=== PATIENT | male | born 1965 | race Caucasian/White ===

== ENCOUNTER → 2023-03-29 | Outpatient (CLI) | payer SELFPAY ==
--- NOTE | 2023-03-29 13:25 | CT ---
EXAMINATION TYPE: CT lumbar spine wo con DATE OF EXAM: 03/29/2023 10:17 AM COMPARISON: None. HISTORY: lower back pain CT DLP: 928 mGycm Automated exposure control for dose reduction was used. Unenhanced CT of the lumbar spine was performed. Bone and soft tissue window settings are submitted as well as coronal and sagittal reconstructions. There are 5 lumbar type vertebra with a transitional L6 type vertebral. Bilateral pars defect L5 leve l with a grade 1 borderline grade 2 anterolisthesis of L5 on L6 measured 9 mm from posterior vertebra l body margin sagittal image 35. There is moderate to severe disc space narrowing with vacuum disc ph enomenon and endplate sclerosis at the labeled L5-L6 level. Vertebral body heights are preserved. Dis c space height above this are preserved. Axial images at T12-L1 and L1-L2 level appear within normal limits. Axial images at L2-L3 level show mild broad disc bulge mildly effaces the anterior thecal sac. Bilate ral neural foramina are patent. Axial images at L3-L4 level show [id number] broad disc bulge mildly effacing anterior thecal sa c. Bilateral neural foramina are patent. Axial images at the L4-L5 level show mild broad disc bulge and mild to moderate facet arthropathy and ligamentum flavum hypertrophy. Bilateral neural foramina are patent. Axial images at L5-L6 level shows spondylolisthesis with pseudodisc herniation. Spinal canal is prese rved. There is moderate facet arthropathy bilaterally. There is moderate bilateral neural foraminal n arrowing. Axial images at L6-S1 level shows moderate facet arthropathy. Spinal canal is preserved. Bilateral ne ural foramina are patent. Paraspinal muscle bulk is preserved. IMPRESSION: Spondylolisthesis and degenerative change L5-L6 level. Additional multilevel degenerative changes as detailed above.
--- NOTE | 2023-03-29 15:09 | CT ---
EXAMINATION TYPE: CT shoulder LT wo con DATE OF EXAM: 03/29/2023 COMPARISON: None. HISTORY: pain and stiffness CT DLP: 506 mGycm Automated exposure control for dose reduction was used. FINDINGS: No acute displaced fracture left shoulder. Mild to moderate narrowing and capsular hypertrophy at the acromioclavicular joint. No significant sp urring. Distal acromion morphology is unremarkable. Glenohumeral joint shows no significant spurring or effusion. Rotator cuff muscle bulk is maintained. Glenoid version is thought within normal limits. Visualized left lung shows old healed fracture of the posterior left sixth rib axial image 61. Visual ized left lung is clear. IMPRESSION: As above.
--- NOTE | 2023-03-29 15:28 | CT ---
EXAMINATION TYPE: CT shoulder RT wo con CT DLP: 487 mGycm, Automated exposure control for dose reduction was used. DATE OF EXAM: 03/29/2023 10:32 AM COMPARISON: CT right left shoulder same day. CLINICAL INDICATION:Male, 57 years old with history of M25.51 M54.5; PHH, pain and stiffness TECHNIQUE: Axial images were obtained of the right . Additional coronal and sagittal reformatted talat ges and soft tissue and bone window were obtained for review. 3-D reconstruction was created on a [employer] workstation. Contrast used: None Oral contrast used: None FINDINGS: No acute displaced fracture left shoulder. Mild to moderate narrowing and capsular hypertrophy at the acromioclavicular joint. Mild osseous spurring of the glenoid and humeral head. Distal acromion morp hology is unremarkable. No os acromiale he visualized. Glenohumeral joint shows no significant spurring or effusion. Rotator cuff muscle bulk is maintained. Glenoid version is thought within normal limits. Visualized right lung is relatively unremarkable. Remote right-sided rib fractures are felt to be pre sent. Right posterior back subcutaneous probable sebaceous cyst measuring 28 x 17 mm. No lymphadenopathy visualized. No solid masses. IMPRESSION: 1. Mild to moderate right shoulder osteoarthrosis. Consider further evaluation of the right shoulder with MRI for adhesive capsulitis given patient provided history of pain and stiffness. 2. No evidence of fracture. 3. Probable Sebaceous cyst posterior right shoulder.
== END | disposition home or self-care (01) ==
LOC: RADCTMAIN 08:23
PROVIDERS: ATTEND Family Medicine
DX: M43.16 Spondylolisthesis, lumbar region (principal); M47.816 Spondylosis without myelopathy or radiculopathy, lumbar region; M99.73 Connective tissue and disc stenosis of intervertebral foramina of lumbar region; M51.36 Other intervertebral disc degeneration, lumbar region; M19.011 Primary osteoarthritis, right shoulder; M25.512 Pain in left shoulder
CPT/HCPCS: 72131

== ENCOUNTER → 2023-11-20 | Outpatient (CLI) | payer BC ==
--- NOTE | 2023-11-20 12:23 | XR ---
EXAMINATION TYPE: XR orbit detect foreign body DATE OF EXAM: 11/20/2023 COMPARISON: NONE HISTORY: 57-year-old male Z91.89, MRI clearance TECHNIQUE: 3 views FINDINGS: No retained metal debris identified within either orbit. Scattered dental amalgam. Visualiz ed paranasal sinuses appear clear radiographically. IMPRESSION: No retained metal debris identified within either orbit. Scattered dental amalgam. Clear for MRI.
== END | disposition home or self-care (01) ==
LOC: RADXRMAIN 11:12
PROVIDERS: ATTEND Orthopaedic Surgery
DX: K08.89 Other specified disorders of teeth and supporting structures (principal); Z91.89 Other specified personal risk factors, not elsewhere classified
CPT/HCPCS: 70030

== ENCOUNTER → 2023-11-29 | Outpatient (CLI) | payer BC ==
--- NOTE | 2023-12-01 08:34 | MR ---
EXAMINATION TYPE: MR lumbar spine wo con DATE OF EXAM: 11/29/2023 COMPARISON: Lumbar spine x-ray 07/06/2023 HISTORY: Lower back pain, BLE radiculopathy. CONTRAST: 0 mL intravenous Gadavist. TECHNIQUE: Multiplanar, multisequence images of the lumbar spine were acquired. For purposes of this exam the west disc level scanned is the L5-S1 level with spondylolisthesis. Plain film correlation would be re commended prior to surgical intervention. FINDINGS: L5-S1: There is a grade 1-2 spondylolisthesis of L5 anteriorly on S1. There is loss of disc height to this level. Residual disc uncovering is noted. No AP spinal canal stenosis. Moderate right and sever e left foraminal stenosis is present. Correlate with radicular symptoms. Facet degenerative changes a re noted. L4-L5: No significant disc bulge or disc herniation. No spinal canal stenosis. No foraminal stenosi s. . L3-L4: Mild central bulge is mild anterior thecal sac compression. No AP spinal canal stenosis is pre sent. Neural foramen are patent. No spinal canal stenosis. No foraminal stenosis. . L2-L3: No significant disc bulge or disc herniation. No spinal canal stenosis. No foraminal stenosi s. L1-L2: No significant disc bulge or disc herniation. No spinal canal stenosis. No foraminal stenosi s. T12-L1: No significant disc bulge or disc herniation. No spinal canal stenosis. No foraminal stenos is. IMPRESSION: 1. Grade 1-2 spondylolisthesis of L5 anteriorly on S1. 2. Severe bilateral foraminal stenosis at L5-S1
== END | disposition home or self-care (01) ==
LOC: RADMRIMAIN 07:59
PROVIDERS: ATTEND Orthopaedic Surgery
DX: M99.74 Connective tissue and disc stenosis of intervertebral foramina of sacral region (principal); M43.16 Spondylolisthesis, lumbar region; M54.16 Radiculopathy, lumbar region
CPT/HCPCS: 72148

== ENCOUNTER → 2024-03-11 | Outpatient (CLI) | payer BC ==
[2024-03-11 17:26] LABS: Basophils # (A) 0.04 X 10*3/uL (0.00-0.10); Basophils % (A) 0.7 %; Eosinophils # (A) 0.13 X 10*3/uL (0.04-0.35); Eosinophils % (A) 2.1 %; HCT 43.4 % (39.6-50.0); HGB 14.2 g/dL (13.0-17.0); Lymphocytes # (A) 1.87 X 10*3/uL (0.90-5.00); Lymphocytes % (A) 30.6 %; MCHC 32.7 g/dL (32.0-37.0); MCV 91.8 FL (80.0-97.0); Mean Platelet Volume 10.1 FL (9.5-12.2); Monocytes # (A) 0.48 X 10*3/uL (0.20-1.00); Monocytes % (A) 7.9 %; NRBC Per 100 WBC 0 X 10*3/uL (0.00-0.01); Neutrophils # (A) 3.53 X 10*3/uL (1.80-7.70); Neutrophils % (A) 57.7 %; Platelet Count 279 X 10*3/uL (140-440); RBC 4.73 X 10*6/uL (4.40-5.60); RDW 13.4 % (11.5-14.5); WBC 6.11 X 10*3/uL (4.50-10.00)
[2024-03-11 17:32] LABS: ALT 34 U/L (10-49); AST 22 U/L (14-35); Albumin 4.8 g/dL (3.8-4.9); Albumin/Globulin Ratio 1.85 Ratio (1.60-3.17); Alkaline Phosphatase 77 U/L (41-126); BUN/Creat Ratio 15.44 Ratio (12.00-20.00); Blood Urea Nitrogen 13.9 mg/dL (9.0-27.0); Calcium 9.8 mg/dL (8.7-10.3); Carbon Dioxide 22.3 mmol/L (21.6-31.8); Chloride 107 mmol/L (96-109); Globulin 2.6 g/dL (1.6-3.3); Glucose 107 mg/dL (70-110); Potassium 4.2 mmol/L (3.5-5.5); Prostate Specific Antigen 1.09 ng/mL (0.000-3.500); Sodium 143 mmol/L (135-145); Total Bilirubin 0.5 mg/dL (0.3-1.2); Total Protein 7.4 g/dL (6.2-8.2)
[2024-03-11 19:32] LABS: Appearance,Urine Clear (Clear); Bilirubin,Urine Negative (Negative); Blood,Urine Negative (Negative); Color,Urine Yellow (Yellow); Ketones,Urine Trace (Negative); Nitrite,Urine Negative (Negative); Specific Gravity,Urine 1.023 (1.001-1.030); Urobilinogen,Urine 0.2 E.U./DL
== END | disposition home or self-care (01) ==
LOC: LABWHC1 08:44
PROVIDERS: ATTEND Family Medicine
DX: Z01.812 Encounter for preprocedural laboratory examination (principal); I10 Essential (primary) hypertension; Z79.899 Other long term (current) drug therapy
CPT/HCPCS: 36415; 80053; 81003; 83036; 84153; 84403; 84443; 85025

== ENCOUNTER → 2024-03-13 | Outpatient (CLI) | payer BC | END | disposition home or self-care (01) | LOC: LABPAT 08:40 | PROVIDERS: ATTEND Orthopaedic Surgery | DX: Z01.812 Encounter for preprocedural laboratory examination (principal); M43.16 Spondylolisthesis, lumbar region; M54.16 Radiculopathy, lumbar region; Z22.322 Carrier or suspected carrier of Methicillin resistant Staphylococcus aureus | CPT/HCPCS: 36415; 86850; 86900; 86901; 87070 ==

== ENCOUNTER 2024-03-19 10:03 | Inpatient (IN) | payer BC ==
[2024-03-18 09:30] VITALS: BMI 30.6
[~2024-03-19 10:03] MED LIST: LIDOCAINE 1% (10MG/ML) FOR IV START INTRADERMA PRN; TRANEXAMIC 1,000 MG/100ML-NACL 1,000 MG in SALINE 1 100ML.BAG IVPB PRN; VANCOMYCIN 1,500 MG in SODIUM CHLORIDE 0.9% 500 ML 500 ML IVPB PRN
--- NOTE | 2024-03-19 10:09 | P.HPOR ---
History of Present Illness H&P Date: 03/13/24 Chief Complaint: GRADE II L4-5 SPONDYLOLISTHESIS; NEUROGENIC CLAUDICATION .D:Date: 03/13/24 : 08:01am .T:Title: *[facility] HISTORY AND PHYSICAL Age: 58 year Height: 6'2" Weight: 234 lbs BMI: 30.04 kg/m2 Occupation: [employer] VAS: 3 IMPRESSION: It was my pleasure to have seen and examined David. I reviewed the patient's clinical syndrome, physical findings, and imaging studies during the appointment today. It is my impression that the patient has a diagnosis of. 1. Grade II spondylolisthesis of L5 on S1 2. Bilateral lower extremity radiculopathy 3. Low back pain Spine Surgery Risk Review Mr. Causey is presenting for evaluation of low back and bilateral lower extremity pain, bilateral lower extremity numbness and tingling. It was my pleasure to have seen and examined Mr. Causey. In our visit today we have had a chance to go over subjective complaints, physical examination findings and treatments including the natural course history without intervention and various interventional options. The patients imaging demonstrates: MRI of the Lumbar Spine performed on 11/29/2023 at [facility] are reviewed today in office and demonstrate: Images Reviewed in office with the patient. Of note, sticking with nomenclature set by radiology. There is segmentation difference in his low spine with mobile disc between what would be S1-2 based on radiology count. L1-2 Mild spondylosis, no stenosis L2-3 Mils spondylosis, no stenosis L3-4 Mild spondylosis, no stenosis L4-5 Mils spondylosos, no stenosis L5-S1 Grade II spondylolisthesis, unstable with severe central and b/l foraminal stenosis, Facet hypertrophy, ligamental hypertrophy, disc osteophyte complex all contributing to deformity and stenotic features. Disc collapse near complete. NO fractures noted. 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 Alignment: Segmental kyphosis due to slip. Overall flattened LL due to this. Coronal alignment: Maintained Fracture: None Lesion: None XRay Lumbar Multiview (AP, Lateral, Flexion, Extension) with AP pelvis; 5 views taken at [facility] on 07/06/23: -Re-reviewed with te patient in office today. Moderate spondylitic and severe degenerative changes L4-S1 with preserved alignment. There is a transitional vertebral body creating an L6 in count. Diminished disc height at L5-S1. Grade 2 anterolisthesis L5 onto L6 (L5-S1 according to radioloty) segmentation difference. Vertebral body heights are preserved. No acute osseous abnormalities. CT scancompleted at [facility] from03/29/23 of LumbarSpine: -Re-reviewed with te patient in office today. IMPRESSION: Spondylolisthesis and degenerative change L5-L6 (L5-S1 according to radiology) level. Additional multilevel degenerative changes as detailed above. On physical exam, Mr. Causey demonstrates: A continued throbbing, ache-like pain throughout the low back that radiates down into the bilateral lower extremities. He states his lower extremity pain is associated with numbness and tingling bilaterally. He notes intermittent sharp, "shock-like" pains throughout the lumbar spine after any quick movements or bending motions. He states his symptoms worsen after prolonged activity. He states his lower extremity pain starts around the bilateral hip and radiates down into the thighs, calves, and bilateral foot. The patient reports experiencing severe sleep disturbances related to his ongoing pain and associated symptoms. I have explained to the patient that as their condition progresses it will cause further neurological deficits and eventual paralysis. Based on the patients imaging, physical exam, and the rapid progression and disabling nature of their symptoms, at this time I recommend surgery in the form of a: L4-S1 decompression and fusion. I discussed the risk and benefits of this procedure at length with Mr. Causey. The patient agreed to considered pursuing the procedure abovementioned. Prior to surgery, she should follow up with her PCP (Cardio, ID, IM etc) for clearance. Questions were invited and answered, and the patient wishes to proceed as outlined below. Currently, I am recommendin.L4-S1 decompression and fusion 2.Follow up with PCP for surgical clearance 3.Review of surgical risks and benefits as well as an educational packet on the proposed surgical procedure. Risks: All surgical procedures come with inherent risks, including those related to positioning, anesthesia, intraoperative findings, and postoperative complications. It is important to understand that surgery does not come with any guarantee of a successful outcome as complications and adverse events are always possible. The patient was given a handout in office today discussing the surgical procedure and risks associated with the intervention, both of which were discussed with the patient. These risks include but are not limited to the following: * Experiencing same, different or even worse symptoms in back, neck, arms, or legs compared to before surgery. Requiring further surgery or other forms of treatment presently or at some time in the future at same or other levels of the intended spine surgery. On an extreme but fortunately relatively rare basis severe complication such as blindness, stroke, heart attack, temporary and/or permanent nerve injury, paralysis, coma, or may occur, sometimes without known explanation. Surgical complications may include but are not limited to risk of infection, fluid accumulation in the surgical dissection site, including a seroma or hematoma, that requires additional surgery, wound drainage, bleeding, new numbness or weakness, vision changes/loss, spinal fluid leakage, non-healing and/or infected incision, headaches, difficulty or inability to swallow, hoarseness, hemopneumothorax, pneumothorax, impotence, retrograde ejaculation, vaginal dryness; injury to nerves, spinal cord, blood vessels, lymphatics or other vital organs (i.e., bowel injury, injury to the great vessels); heterotopic bone formation; complications related to the hardware such as screws, rods, cages including misplaced hardware, device failure, instrumentation at the wrong spine level, hardware fracture/breakage, or hardware loosening; vertebral failure of the spinal column above or below the newly placed hardware; retained surgical instrumentations or devices and the need for further surgery. * Medical risks of the planned spine surgery include but are not limited to generalized Infections to the whole body or local areas outside of the surgical site (sepsis), heart attack, bleeding, anaphylaxis, meningitis, seizure, epilepsy, hearing loss, burn justice, laceration of the head or other areas of the body, bruising, hypersensitivity of the skin, bladder over distension; allergic reaction; shoulder injury related to positioning; fat, blood and air clots to other areas of the body like heart, lungs, brain; failure of internal organs such as lungs, kidneys, liver and excessive bleeding. If blood transfusions are necessary, note that transfusions may cause intolerance reactions such as anaphylaxis or other complex reactions. Despite best efforts, the results of spine surgery might not heal in terms of bone, soft tissues such as skin, fascia, ligaments, and joints. Additionally, in order to achieve best possible results, spine surgery may be carried out beyond the initially planned levels and involve decompression, fusion including insertion of hardware at levels other than the original intended area of surgical interest change some portions of the procedure in order to ensure the best possible outcomes. With spine surgery and spinal fusion, there are different off label uses of instrumentation (devices, implants and hardware) as well as biological substances (bone morphogenic proteins, demineralized bone matrix) as well as using extra bone from allograft sources (i.e. cadaver bone) or autograft (iliac crest bone, ribs, or the spine itself). The patient has been given information about these practices and their inherent risks and benefits. [facility] is an educational center that serves as a training facility for neurosurgical and orthopedic [employer] and Nursing students. Physician assistants are medically trained surgical providers who function in the outpatient, inpatient, and operating room setting under the direct supervision of the attending surgeon. [facility] has multiple operating rooms with single and overlapping rooms running daily. They currently function under the required guidelines as produced by the [facility] Finance Committee with regards to the overlapping rooms and will continue to comply with changes to this policy as they occur. The requirements include and are complied with as follows: (1) the critical portions of the overlapping rooms will not occur at the same time, (2) the attending physician will be physically present during the critical portions of the procedure and immediately available during the entire case, and (3) a back-up attending is designated should the primary attending not be immediately available. The patient has had a chance to review all the listed information, has been given print outs detailing this information, and has had all his/her questions answered to their satisfaction. It was my pleasure to have seen and examined Mr. Causey. In our visit today we have had a chance to go over my understanding of our patient's current condition, the natural course history without intervention and various interventional options. Questions were invited and answered, and the patient wishes to proceed as outlined above. I have seen and examined the patient for 25 minutes and we have spent more than 50% of the time in repeat and detailed counseling about the patient's condition, its natural course history with out and as much as can be predicted with surgery and re-review of various surgical treatment options. In conclusion, Mr. Causey requested we proceed with the above suggested surgery and are willing to accept risks and limitations of the suggested surgery as nature of the disease process and our best attempts at treatment for the condition. Thank you again for allowing us to be part of your patient's care. Please don't hesitate to contact me if you have any further questions. FOLLOW UP: Post Procedure PATIENT EDUCATION: Medications Reviewed: YES In our visit today Mr. Causey and I have had a chance to go over my understanding of the patient's current condition, the natural course history without intervention and various interventional options. Questions were invited and answered, and the patient wishes to proceed as outlined above. I will be sure to keep you updated after Mr. Causey returns here for further follow-up. Thank you again for your referral. Please do not hesitate to contact me if you have any further questions. Signed and authenticated by: Luiz Richardson [facility] [address] [place] [id number] This message is confidential, intended only for the named recipient(s) and may contain information that is privileged or exempt from disclosure under applicab le law. If you are not the intended recipient(s), you are notified that the dissemination, distribution or copying of this information is strictly prohibited. If you received this message in error, please notify the sender then delete this message. Past Medical History Past Medical History: No Reported History Additional Past Medical History / Comment(s): CHRONIC BACK PAIN History of Any Multi-Drug Resistant Organisms: None Reported Past Surgical History: Appendectomy Past Anesthesia/Blood Transfusion Reactions: No Reported Reaction Past Psychological History: No Psychological Hx Reported Smoking Status: Never smoker Past Alcohol Use History: Heavy Additional Past Alcohol Use History / Comment(s): HAS NOT DRANK IN TWO WEEKS IN PREPARATION FOR SURGERY Past Drug Use History: None Reported - Past Family History Mother Additional Family Medical History / Comment(s): "HEART ISSUES" Father Family Medical History: Cancer Medications and Allergies Home Medications Medication Instructions Recorded Confirmed Type No Known Home Medications 03/18/24 03/18/24 History Allergies Allergy/AdvReac Type Severity Reaction Status Date / Time No Known Allergies Allergy Verified 03/18/24 09:01 Physical Examination Osteopathic Statement: *. No significant issues noted on an osteopathic structural exam other than those noted in the History and Physical/Consult.
[2024-03-19] MEDS: LACTATED RINGERS 1,000 ML IV ONE ×4 (11:30→15:52)
[2024-03-19] MEDS: DEXAMETHASONE SOD PHOSPHATE 4 MG/ML 1 ML VIAL IV ONE (11:30)
[2024-03-19] MEDS: ACETAMINOPHEN TAB 500 MG TAB PO PRN (11:30)
[2024-03-19] MEDS: MIDAZOLAM 2 MG/2 ML VIAL IV PRN (11:30)
[2024-03-19] MEDS: ONDANSETRON 4 MG/2 ML VIAL IVP PRN (11:30)
[2024-03-19] MEDS: GABAPENTIN 300 MG CAP PO PRN (11:30)
[2024-03-19] MEDS: VANCOMYCIN 1,000 MG VIAL IVPB ONE (11:37)
[2024-03-19] MEDS ORDERED: MIDAZOLAM 2 MG/2 ML VIAL ONE (12:46)
[2024-03-19] MEDS ORDERED: fentaNYL (PF) 50 MCG/ML 2 ML AMP ONE (12:46)
[2024-03-19] MEDS ORDERED: GLYCOPYRROLATE 0.2 MG/ML 2 ML VIAL ONE (12:46)
[2024-03-19] MEDS ORDERED: KETAMINE HCL IN 0.9 % NACL 50 MG/5 ML SYRINGE ONE (12:46)
[2024-03-19] MEDS ORDERED: ROCURONIUM 10 MG/ML (5 ML VIAL) IV ONE (12:46)
[2024-03-19] MEDS ORDERED: HYDROmorphone (PF) 1 MG/ML ONE (12:46)
[2024-03-19] MEDS ORDERED: TRANEXAMIC 1,000 MG/100ML-NACL PREMIX BAG ONE (12:46)
[2024-03-19] MEDS ORDERED: LIDOCAINE 1% INJ 10MG/ML (20 ML MDV) ONE (12:46)
[2024-03-19] MEDS ORDERED: NEOSTIGMINE 1 MG/ML 10 ML VIAL ONE (12:46)
[2024-03-19] MEDS ORDERED: PROPOFOL 10 MG/ML 20 ML VIAL IV ONE (12:46)
[2024-03-19] MEDS: ceFAZolin 3,000 MG in SODIUM CHLORIDE 0.9% IRRIGATIO 3,000 ML IRRIGATION ONE (13:16)
[2024-03-19] MEDS: GENTAMICIN 80 MG in SODIUM CHLORIDE 0.9% IRRIGATIO 3,000 ML IRRIGATION ONE (13:16)
[2024-03-19] MEDS: THROMBIN (BOVINE) 5,000 UNIT VIAL TOPICAL ONE (13:16)
[2024-03-19] MEDS: VANCOMYCIN 1,000 MG VIAL MISCELLANE ONE (16:45)
--- NOTE | 2024-03-19 17:37 | P.OP ---
Date of Procedure: 03/19/24 Preoperative Diagnosis: 1. L5-S1 (TRANSITIONAL SEG) GRADE II SPONDYLOLISTHESIS, SPONDYLOLYSIS 2. L5-S1 (TRANSITIONAL SEG) SEVERE STENOSIS 3. LE RADICULOPATHY 4. LE WEAKNESS 5. LOW BACK PAIN Postoperative Diagnosis: 1. L5-S1 (TRANSITIONAL SEG) GRADE II SPONDYLOLISTHESIS, SPONDYLOLYSIS 2. L5-S1 (TRANSITIONAL SEG) SEVERE STENOSIS 3. LE RADICULOPATHY 4. LE WEAKNESS 5. LOW BACK PAIN Procedure(s) Performed: 1. L5-S1 (TRANSITIONAL SEG) INTRADISCAL OSTEOTOMY, 3 COLUMN, FOR DEFORMITY CORRECTION OF GRADE II SPONDYLOLISTHESIS AND MOBILIZATION 2. L5-S1 POSTEROLATERAL AND INTERBODY FUSION 3. L4-5 POSTEROLATERAL AND INTERBODY FUSION 4. L4-S1 BILATERAL LAMINECTOMY, COMPLETE FACETECTOMY AND FORAMINOTOMY FOR DEFORMITY CORRECTION, MOBILIZATION, NEURAL DECOMPRESSION AND CAGE PLACEMENT 5. L4-S1 SEGMENTAL INSTRUMENTATION 6. DURAL REPAIR WITH PATCH GRAFT 7. INSERTION OF BIOMECHANICAL DEVICE L4-5 AND L5-S1, CAGES, X2 8. USE OF [employer] NAVIGATION FOR SCREW PLACEMENT USE OF IONM ALL SCREWS TESTING >20 mA CPTMOD 22 THIS CASE TOOK 80% LONGER THAN EXPECTED DUE TO CORMORBID CONDITIONS, SEVERITY AND EXTENT OF LUMBAR DISEASE AND HIGH TECHNICALITY OF THE CASE. Implants: -[employer]IDA EVEREST RODS AND SCREWS -GLOBUS SABLE CAGES X2 9-16 LONG, 8 DEG, 12 MM 9-16 MED, 8 DEG 12 MM -AUTOGRAFT, ARTHROCELL, MAGNATOS, DBM Anesthesia: GETA Surgeon: Luiz Pandya Cell Room Operator #1: Dajuan Alberto (WAS PRESENT AND ASSISTED WITH ALL ASPECTS OF THE CASE FROM POSITION TO CLOUSRE) Estimated Blood Loss (ml): 700 IV fluids (ml): 2,300 Urine output (ml): 350 Pathology: none sent Condition: stable Disposition: PACU Indications for Procedure: Mr. Causey is presenting for evaluation of low back and bilateral lower extremity pain, bilateral lower extremity numbness and tingling. It was my pleasure to have seen and examined Mr. Causey. In our visit today we have had a chance to go over subjective complaints, physical examination findings and treatments including the natural course history without intervention and various interventional options. The patients imaging demonstrates: MRI of the Lumbar Spine performed on 11/29/2023 at [facility] are reviewed today in office and demonstrate: Images Reviewed in office with the patient. Of note, sticking with nomenclature set by radiology. There is segmentation difference in his low spine with mobile disc between what would be S1-2 based on radiology count. L1-2 Mild spondylosis, no stenosis L2-3 Mils spondylosis, no stenosis L3-4 Mild spondylosis, no stenosis L4-5 Mils spondylosos, no stenosis L5-S1 Grade II spondylolisthesis, unstable with severe central and b/l foraminal stenosis, Facet hypertrophy, ligamental hypertrophy, disc osteophyte complex all contributing to deformity and stenotic features. Disc collapse near complete. NO fractures noted. 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 Alignment: Segmental kyphosis due to slip. Overall flattened LL due to this. Coronal alignment: Maintained Fracture: None Lesion: None XRay Lumbar Multiview (AP, Lateral, Flexion, Extension) with AP pelvis; 5 views taken at [facility] on 07/06/23: -Re-reviewed with te patient in office today. Moderate spondylitic and severe degenerative changes L4-S1 with preserved alignment. There is a transitional vertebral body creating an L6 in count. Diminished disc height at L5-S1. Grade 2 anterolisthesis L5 onto L6 (L5-S1 according to radioloty) segmentation difference. Vertebral body heights are preserved. No acute osseous abnormalities. CT scancompleted at [facility] from03/29/23 of LumbarSpine: -Re-reviewed with te patient in office today. IMPRESSION: Spondylolisthesis and degenerative change L5-L6 (L5-S1 according to radiology) level. Additional multilevel degenerative changes as detailed above. On physical exam, Mr. Causey demonstrates: A continued throbbing, ache-like pain throughout the low back that radiates down into the bilateral lower extremities. He states his lower extremity pain is associated with numbness and tingling bilaterally. He notes intermittent sharp, "shock-like" pains throughout the lumbar spine after any quick movements or bending motions. He states his symptoms worsen after prolonged activity. He states his lower extremity pain starts around the bilateral hip and radiates down into the thighs, calves, and bilateral foot. The patient reports experiencing severe sleep disturbances related to his ongoing pain and associated symptoms. I have explained to the patient that as their condition progresses it will cause further neurological deficits and eventual paralysis. Based on the patients imaging, physical exam, and the rapid progression and disabling nature of their symptoms, at this time I recommend surgery in the form of a: L4-S1 decompression and fusion. I discussed the risk and benefits of this procedure at length with Mr. Causey. The patient agreed to considered pursuing the procedure abovementioned. Prior to surgery, she should follow up with her PCP (Cardio, ID, IM etc) for clearance. Questions were invited and answered, and the patient wishes to proceed as outlined below. Currently, I am recommendin.L4-S1 decompression and fusion Description of Procedure: L4-S1 open Decompression and fusion with Grade II spondylolisthesis reduction and deformity correction. The patient was seen and examined in the preoperative area. All preoperative protocols were followed. Informed consent was obtained, risks and benefits of the procedure were discussed at length. Risks including bleeding infection da mage to the surrounding tissue and risk of reoperation were discussed with the patient. Risk of anesthesia up to and including was discussed with the patient. These are outlined in the risk review. They were willing to accept these risks and all the risks of surgery. The patient was given a weight-based dose of antibiotics in the form of 2 g Ancef. The patient was seen and evaluated by the anesthesia team who deemed them fit for surgery. The site was marked, the patient was willing to proceed with the procedure. The patient was transferred to the operative suite by the Department of anesthesia. They were then drifted off to sleep by the department anesthesia and GETA was performed. The patient tolerated this well. Pacheco catheter was placed by nursing staff, a-traumatically. Once confirmation of lines and ventilation the patient was transferred to a prone Luisito table very carefully. All bony prominences including wrists, elbows, axilla, chest, hips, and thighs, and feet were padded very well. Special attention was paid to the genitalia, and these were padded accordingly. SCDs were placed on bilateral lower extremities and were connected. Arms were well padded and placed on arm boards up and out in the 90/90 position. Once in position, again we confirmed good ventilation capabilities and that lines were running appropriately. The patients Lumbar spine was then exposed. 1010s were placed outlining the incision site. Standard alcohol was used to clean the incision site and allowed to dry. C-arm was used to needle localize the pedicles at L4-S1 and bio-vernell the patient and confirm level for incision which was marked with a skin marker. Operative briefing was performed with all teams and everyone in agreement to proceed. The patient was then prepped and draped in a normal sterile fashion. Timeout was then performed, and all parties agreed with the procedure to be performed. Midline skin incision was made over the previously bio-marked area and dissection taken down over the SP of L3-S1. L4-S1 was taken out over facet joints and TPs and a penfield 4 used to vernell the L4 pedicle. Lateral image used to confirm levels. Once confirmed, screws were proceeded to be placed b/l at pedicles from L4-S1 using [employer] navigation. Tracker was secured to the SP of S1 and a 3D Zhiem spin was done. Once registered, it was confirmed to be accurate. A navigated High speed lan was used to create the banquet pilot hole, Navigated Awl-tap followed by navigated screw were then placed. Ball tip probe was used to sound the 4 pedicle chou before placement. Once screws were placed they were confirmed to be in good position using AP and Lateral fluoroscopy. The wound was then irrigated. Screws were tested and all tested above 20 mA. We then proceeded to decompression and cage placement. Attention was then turned to interbody fusion at L5-S1 and osteotomy for deformity correction. There was exuberant scar and osteophyte formation, deformity due to b/l pars defects and cystic formation around the neural elements. Bilateral laminectomy, complete facetectomy and foraminotomy performed at L5-S1 using high speed lan and Kerrison rongeur. The ligamentum was removed and the dural sac decompressed. Exiting and traversing roots visualized and decompressed. Neural elements were then protected, and disc space accessed with an osteotome. Intradiscal, 3 column osteotomy, was performed under fluoroscopic guidance using an osteotome to remove the entire disc. Sequential shaving then done under lateral imaging and complete discectomy performed using erlinda, pituitary and curette. Once good bleeding endplates accomplished and good height faith with trials, a combination of autograft, allograft and synthetic placed anterior in the disc space. The cage was then selected and impacted into place under lateral imaging. The cage was then expanded restoring height, lordosis and alignment. The cage was backfilled with bone graft through a funnel. The group leader was removed and the area inspected. Good cage placement, stable cage and no injuries. Area was irrigated copiously, and meticulous hemostasis achieved. Attention was then turned to interbody fusion at L4-5. Bilateral laminectomy, complete facetectomy and foraminotomy performed at L4-5 using high speed lan and Kerrison rongeur. The ligamentum was removed and the dural sac decompressed. Once decompression was done there was noted two small dural erosions on the posterior right side where the most scar tissue was removed. These were then fixed with 6-0 prolene suture in an simple fashion and valsalva to 40 mmHg was done. There was no continued leak. Exiting and traversing roots visualized and decompressed. Neural elements were then protected, and disc space accessed with an osteotome. Sequential shaving then done under lateral imaging and complete discectomy performed using erlinda, pituitary and curette. Once good bleeding endplates accomplished and good height faith with trials, a combination of autograft, allograft and synthetic placed anterior in the disc space. The cage was then selected and impacted into place under lateral imaging. The cage was then expanded restoring height, lordosis and alignment. The cage was backfilled with bone graft through a funnel. The group leader was removed and the area inspected. Good cage placement, stable cage and no injuries. Area was irrigated copiously, and meticulous hemostasis achieved. The wound and disc spaces were irrigated and meticulous hemostasis achieved. Rods were then sized and selected and placed into S1 screws b/l. Set screws locked these in place and then sequentially reduced into L4 and L5 b/l for alignment faith. This was accomplished. Set screws were then all placed an d finally tightened. A cross link was selected and placed and finally tightened. TPs were then decorticated with a high speed lan. The wound was irrigated with 3L Ancef irrigation, 1L irricept, 1L betadine solution and 3L gentamicin irrigation and 3L NSS. Tisseal and Surgicel was placed over the dura. Vancomycin powder 2g placed in the wound. Autograft and MagnatOs then placed in the posterolateral gutters and impacted into place. Deep drain placed and secured to the skin. Final images confirmed good placement of hardware and good reduction of listhesis as well as faith of height and lordosis. Fascia was then closed with #1 PDS. Deep subq closed with 0 Vicryl. Superficial subq closed with 2-0 Vicryl and skin with orlando. Wound edges approximated very well. Wound was then cleaned with alcohol and dried. Wound was dressed with adaptic, 4x4, abds and foam tape. The patient was then transferred off the table back to their hospital bed a- traumatically. Drain continued to hold gravity suction. They were extubated by the department of anesthesia. They were then transferred to PACU in stable condition having tolerated the procedure with no complications.
[2024-03-19] MEDS ORDERED: bisacodyL 10 MG SUPP RECTAL PRN (17:47)
[2024-03-19] MEDS ORDERED: NA PHOS,M-B/NA PHOS,DI-BA 133 ML ENEMA RECTAL PRN (17:47)
[2024-03-19] MEDS ORDERED: HYDROmorphone 1 MG/ML 1 ML SYRINGE IVP PRN (17:47)
[2024-03-19] MEDS ORDERED: ONDANSETRON 4 MG/2 ML VIAL IVP PRN (17:47)
--- NOTE | 2024-03-19 17:52 | FL ---
EXAMINATION TYPE: FL guidance operating room, XR lumbar spine 2 or 3V Intraoperative/procedural fluor oscopic services were provided. Total fluoroscopy time is 52 seconds with a total of 4 submitted imag es to PACS. Please see the operative/procedural note for further details. DAP: 6004.29 cGycm2
[2024-03-19] MEDS: HYDROmorphone 0.5 MG/0.5 ML SYRINGE IVP PRN ×2 (19:00→22:22)
[2024-03-19] MEDS: MEPERIDINE 50 MG/ML SYRINGE IVP ONE (19:39)
[2024-03-19] MEDS: ACETAMINOPHEN TAB 325 MG TAB PO SCH (20:25)
[2024-03-19] MEDS: HYDROcodone/APAP 7.5-325MG 1 EACH TAB PO PRN (20:30)
[2024-03-19] MEDS: KETOROLAC 15 MG/ML 1 ML VIAL IVP PRN (21:26)
[2024-03-20] MEDS: CYCLOBENZAPRINE 10 MG TAB PO PRN (00:24)
[2024-03-20] MEDS: LACTATED RINGERS 1,000 ML IV SCH (03:00)
--- NOTE | 2024-03-20 07:57 | CT ---
EXAMINATION TYPE: CT lumbar spine wo con DATE OF EXAM: 03/20/2024 COMPARISON: 03/29/2023 HISTORY: 58-year-old male Hardware evaluation, s/p lumbar fusion TECHNIQUE: Contiguous axial scanning of the lumbar spine without IV contrast. Coronal and sagittal re constructions performed. CT DLP: 1309.6 mGycm Automated exposure control for dose reduction was used. FINDINGS: Redemonstrated transitional lumbosacral segment is noted as a sacralized L5. The overall degree of anterolisthesis at L4-L5 has improved following placement of L3-L5 posterior an d interbody fusion. Trace grade 1 anterolisthesis remains. Soft tissue air and additional air within the laminectomy bed and epidural space related to recent operation. Lateral bone graft material is p resent along with corresponding laminectomies. Surgical drain is in lace. Bilateral foraminotomies also demonstrated L3-L4 and L4-L5. The right L5 screw tip projects just beyond the anterior vertebral body cortex. Otherwise, no evident hardware complication is seen. Posterior midline skin orlando. IMPRESSION: 1. TRANSITIONAL LUMBOSACRAL SEGMENT DENOTED A SACRALIZED L5. INTERVAL PLACEMENT OF L3-L5 POSTERIOR AND INTERBODY FUSION WITH CORRESPONDING LAMINECTOMIES AND FORAMINOTOMIES. RECENT POSTOPERATIVE PHAN ES WITH SURGICAL DRAIN IN PLACE. 2. THE PREVIOUS ANTEROLISTHESIS AT L4-L5 HAS IMPROVED FOLLOWING THE FUSION. TRACE GRADE 1 ANTEROLISTH ESIS REMAINS HERE. 3. HARDWARE APPEARS SATISFACTORY WITH ONLY THE RIGHT L5 SCREW TIP PROJECTING JUST BEYOND THE ANTERIOR VERTEBRAL BODY CORTEX.
[2024-03-20] MEDS: ONDANSETRON 4 MG/2 ML VIAL IVP ONE (08:16)
--- NOTE | 2024-03-20 08:22 | P.PN ---
Subjective Progress Note Date: 03/20/24 Principal diagnosis: 1. Grade II spondylolisthesis of L5 on S1 2. Bilateral lower extremity radiculopathy 3. Low back pain patient seen and examined this morning. Patient has been laying flat since procedure due to small dural tear. Assisted patient with head of bed up to 10 to 15 degrees, patient is tolerating well. Patient denies any nausea/vomiting, dizziness, blurred vision, or headaches. Continue to increase head of bed 10 de grees/hr as patient tolerates. Hopeful to have patient sitting at edge of bed this afternoon/evening. If symptoms present return patient to laying flat. Surgical incision to the lumbar spine, Hemovac is present with no compression, 100 mL output overnight. Patient does report pain is managed on current regimen. Will reassess this later this afternoon. Objective - Vital Signs Vital signs: Vital Signs Temp 98.9 F 03/20/24 00:53 Pulse 79 03/20/24 00:53 Resp 15 03/20/24 00:53 BP 102/63 03/20/24 00:53 Pulse Ox 93 L 03/20/24 00:53 FiO2 Intake & Output 03/19/24 03/20/24 03/20/24 18:59 06:59 18:59 Intake Total 2902 Output Total 1050 1600 Balance 1852 -1600 Weight 108.1 kg 108.1 kg Intake: IV 2902 Output: Drainage 100 Back 100 Urine 350 1500 Uretheral (Wong) 1500 Estimated Blood Loss 700 Other: Voiding Method Indwelling Catheter Assessment and Plan Assessment: Postop day 1: L4-S1 decompression fusion 1. Grade II spondylolisthesis of L5 on S1 2. Bilateral lower extremity radiculopathy 3. Low back pain Plan: -Appreciate content management consultant and team management. -Activity: Ambulate QID, OOB all meals, up and about, limit lifting bending twisting to less than 5 lbs. Use walker or cane if needed for stability. -Daily PT/OT, increase ambulation strength and balance. -Brace when up and about, not needed in bed or chair; LSO brace is at bedside. -Pain control: Adequate at this time -Meds: reviewed -GI ppx: senna, Miralax -DC wong when up and about, bedside commode if needed -DVT PPX: OK to restart Heparin tonight -Hygiene:Maintain dressing clean and dry. Meticulous cleaning after BMs away from the incision site -Drains: Maintain for now. Continue to monitor and record output q shift. -Encourage IS 10x/hr -Dispo:Clincally pending *I reviewed and discussed this case with my attending Dr. Pandya, whom has reviewed this chart and films and is in agreement with assessment and plan of care as outlined above. I have personally seen and examined the patient, performed the documentation and the assessment and plan as written. Number of minutes spent on the visit: 20m.
[2024-03-20] MEDS: CYCLOBENZAPRINE 10 MG TAB PO SCH (08:32)
[2024-03-20] MEDS: SENNOSIDES-DOCUSATE SODIUM 1 EACH TAB PO SCH (08:32)
[2024-03-20] MEDS: HYDROcodone/APAP 10-325MG 1 EACH TAB PO PRN (08:32)
[2024-03-20 10:23] LABS: Basophils # (A) 0.02 X 10*3/uL (0.00-0.10); Basophils % (A) 0.2 %; Eosinophils # (A) 0 X 10*3/uL (0.04-0.35); Eosinophils % (A) 0 %; HCT 34.9 % (39.6-50.0); HGB 11.5 g/dL (13.0-17.0); Lymphocytes # (A) 1.47 X 10*3/uL (0.90-5.00); MCH 29.9 pg (27.0-32.0); MCV 90.9 FL (80.0-97.0); Mean Platelet Volume 10.2 FL (9.5-12.2); Monocytes # (A) 0.89 X 10*3/uL (0.20-1.00); Monocytes % (A) 7.9 %; NRBC Per 100 WBC 0 X 10*3/uL (0.00-0.01); Neutrophils # (A) 8.88 X 10*3/uL (1.80-7.70); Neutrophils % (A) 78.3 %; Platelet Count 243 X 10*3/uL (140-440); RBC 3.84 X 10*6/uL (4.40-5.60); RDW 13.2 % (11.5-14.5); WBC 11.33 X 10*3/uL (4.50-10.00)
[2024-03-20 10:42] LABS: BUN/Creat Ratio 12.78 Ratio (12.00-20.00); Blood Urea Nitrogen 11.5 mg/dL (9.0-27.0); Carbon Dioxide 24.1 mmol/L (21.6-31.8); Chloride 104 mmol/L (96-109); Glucose 121 mg/dL (70-110); Potassium 3.6 mmol/L (3.5-5.5); Sodium 139 mmol/L (135-145)
[2024-03-20 15:54] LABS: T4, Free (Free Thyroxine) 1.58 ng/dL (0.78-2.19)
[2024-03-20] MEDS: IPRATROPIUM-ALBUTEROL 3 ML NEB INHALATION SCH (16:20)
--- NOTE | 2024-03-20 19:29 | XR ---
EXAMINATION TYPE: XR chest 1V portable DATE OF EXAM: 03/20/2024 Comparison: None Clinical History: 58-year-old male HYPOXIA Findings: Low lung volumes and crowded vascular markings. Large patient body habitus resulting in hazy lung den sities. Heart borderline enlarged. No val consolidation or pleural effusion. Impression: Limited by body habitus and hypoventilatory changes. Borderline cardiomegaly. Otherwise, no definite acute process.
--- NOTE | 2024-03-20 23:53 | CONS ---
CONSULTATION HISTORY OF PRESENT ILLNESS: This is a 58-year-old white male, status post lumbar surgery for grade 2 spondylolisthesis L5-S1, lower extremity radiculopathy, increased. Surgical pain is back. He was lying flat on the bed due to . Blood pressure 102/63, pulse 76, respiratory rate 15, O2 93, temp 98.6. Restarting heparin. PT, OT involved. Home medications are reviewed. Past medical history is being reviewed. PROGNOSIS: Guarded. Postop care, possibly given some breathing treatments. Oxygen levels 92 at different times. Continue current treatment and will check on his home medications and medical status. Get back with you. MMODL / IJN: [id number] /
--- NOTE | 2024-03-21 07:45 | P.PN ---
Subjective Progress Note Date: 03/21/24 Principal diagnosis: 1. Grade II spondylolisthesis of L5 on S1 2. Bilateral lower extremity radiculopathy 3. Low back pain Patient seen and examined this morning. Patient is resting comfortably in bed. He is sitting upright in bed. Patient denies any nausea vomiting, dizziness, blurred vision, or headache. Informed patient that physical therapy will begin to work with him today. LSO brace is at bedside. Patient is to be up to the chair for all meals. Surgical incision to the lumbar spine, dressing is clean dry and intact. Hemovac present with 90 mL output overnight. Patient does report improvement of his lower extremity symptoms since the procedure. Continue to encourage use of incentive spirometer while awake. Objective - Vital Signs Vital signs: Vital Signs Temp 98.7 F 03/21/24 00:56 Pulse 94 03/21/24 00:56 Resp 15 03/21/24 00:56 BP 112/73 03/21/24 00:56 Pulse Ox 96 03/21/24 00:56 FiO2 Intake & Output 03/20/24 03/21/24 03/21/24 18:59 06:59 18:59 Output Total 1255 985 Balance -1255 -985 Output: Drainage 80 135 Back 80 135 Urine 1175 850 Uretheral (Wong) 850 Other: Voiding Method Indwelling Catheter Indwelling Catheter - Exam Physical Examination General: The patient is awake and alert, in no acute distress Skin: Skin is warm and dry with no obvious rashes or lesions. Surgical incision to the lumbar spine, dressing is clean dry and intact. Hemovac is present with 90 mL output overnight. Eye: Pupils are equal, round and reactive to light, extra-ocular movements are intact; there is normal conjunctiva bilaterally. Neck: The neck is supple, there is no tenderness and ROM intact. Cardiovascular: There is a regular rate and rhythm. No murmur, rub or gallop is appreciated. Respiratory: Respirations are non-labored, breath sounds are equal. Gastrointestinal: Soft, non-distended, non-tender abdomen. Back: There is no tenderness to palpation in the midline, paralumbar, par athoracic or buttocks region. There is no obvious deformity . Musculoskeletal: ROM limited secondary to pain and stiffness from surgical procedure. Muscle strength in all major muscle groups of bilateral upper extremities 5/5, bilateral lower extremities 4+/5. Neurological: CN 2-12 intact. There are no obvious motor or sensory deficits. Movement and coordination equal and intact. Sensory exam to light touch intact C5-T1 and intact from L2-S1. Reflexes 2/4 in bilateral upper and lower extremiti es. Negative Hoffmans, babinski, and clonus signs. Psychiatric: Cooperative, appropriate mood & affect, normal judgment. - Labs CBC & Chem 7: 03/20/24 06:20 03/20/24 06:20 Labs: Abnormal Lab Results - Last 24 Hours (Table) 03/20/24 03/20/24 03/20/24 Range/Units 06:20 06:20 14:11 WBC 11.33 H (4.50-10.00) X 10*3/uL RBC 3.84 L (4.40-5.60) X 10*6/uL Hgb 11.5 L (13.0-17.0) g/dL Hct 34.9 L (39.6-50.0) % Immature Gran # 0.07 H (0.00-0.04) X 10*3/uL Neutrophils # 8.88 H (1.80-7.70) X 10*3/uL Eosinophils # 0 L (0.04-0.35) X 10*3/uL D-Dimer (<0.60) mg/L FEU Glucose 121 H (70-110) mg/dL Calcium 8.0 L (8.7-10.3) mg/dL TSH 0.178 L (0.465-4.680) mIU/L 03/20/24 Range/Units 14:11 WBC (4.50-10.00) X 10*3/uL RBC (4.40-5.60) X 10*6/uL Hgb (13.0-17.0) g/dL Hct (39.6-50.0) % Immature Gran # (0.00-0.04) X 10*3/uL Neutrophils # (1.80-7.70) X 10*3/uL Eosinophils # (0.04-0.35) X 10*3/uL D-Dimer 0.80 H (<0.60) mg/L FEU Glucose (70-110) mg/dL Calcium (8.7-10.3) mg/dL TSH (0.465-4.680) mIU/L Assessment and Plan Assessment: Postop day 2: L4-S1 decompression fusion 1. Grade II spondylolisthesis of L5 on S1 2. Bilateral lower extremity radiculopathy 3. Low back pain Plan: -Appreciate student union consultant and team management. -Activity: Ambulate QID, OOB all meals, up and about, limit lifting bending twisting to less than 5 lbs. Use walker or cane if needed for stability. -Daily PT/OT, increase ambulation strength and balance. -Brace when up and about, not needed in bed or chair; LSO brace is at bedside. -Pain control: Adequate at this time -Meds: reviewed -GI ppx: senna, Miralax -DC wong this morning -DVT PPX: Heparin -Hygiene:Maintain dressing clean and dry. Meticulous cleaning after BMs away from the incision site -Drains: Maintain for now. Continue to monitor and record output q shift. -Encourage IS 10x/hr -Dispo: Anticipate discharge home tomorrow with home care *I reviewed and discussed this case with my attending Dr. Pandya, whom has reviewed this chart and films and is in agreement with assessment and plan of care as outlined above. I have personally seen and examined the patient, performed the documentation and the assessment and plan as written. Number of minutes spent on the visit: 20m.
[2024-03-21] MEDS: KETOROLAC 15 MG/ML 1 ML VIAL IVP SCH (12:17)
--- NOTE | 2024-03-21 20:44 | CT ---
EXAMINATION TYPE: CT angio chest DATE OF EXAM: 03/21/2024 COMPARISON: None HISTORY: High D-dimer. Inpatient. CT DLP: 652.4 mGycm. Automated Exposure Control for Dose Reduction was Utilized. TECHNIQUE: CTA scan of the thorax is performed with IV Contrast, patient injected with 100 mL of Isov ue 300. MIP Images are created on CT scanner and reviewed. FINDINGS: LUNGS: Bibasilar bands of added opacity consistent with atelectasis and/or bronchopneumonia. No evide nce of pulmonary edema. MEDIASTINUM: There is unsatisfactory enhancement of the pulmonary artery and its branches, and there is significant motion artifact as well. These factors do not allow adequate visualization of the segm ental branches of the pulmonary arteries throughout the lungs. However, there is subtle evidence sugg esting segmental partial filling defects in the RUL, suggesting nonocclusive segmental pulmonary embo li. There are no central pulmonary arterial or lobar pulmonary arterial filling defects. There is no cardiomegaly or pericardial effusion. The right ventricle is larger than the left ventric le and there is flattening of interventricular septum, so right heart strain cannot be excluded. There is no acute aortic process. There is mild tortuosity to the thoracic aorta, but the aorta is no t dilated. No greater than 1 cm short axis hilar or mediastinal lymph nodes OTHER: No acute upper abdominal process. IMPRESSION: Limited CT examination; consider short interval follow-up. Findings suspicious for nonocclusive right upper lobe segmental pulmonary emboli. Right heart strain cannot be excluded. Bibasilar multifocal atelectasis and/or pneumonia.
[2024-03-21 21:17] LABS: Basophils % (A) 0 %; Eosinophils # (A) 0.1 k/uL (0-0.7); Eosinophils % (A) 1 %; HCT 34.6 % (39.0-53.0); HGB 11.4 gm/dL (13.0-17.5); Lymphocytes # (A) 1.8 k/uL (1.0-4.8); Lymphocytes % (A) 15 %; Mean Platelet Volume 7.8; Monocytes # (A) 0.6 k/uL (0-1.0); Monocytes % (A) 5 %; Neutrophils # (A) 9.4 k/uL (1.3-7.7); Neutrophils % (A) 78 %; Platelet Count 218 k/uL (150-450); RDW 13.4 % (11.5-15.5); WBC 12.1 k/uL (3.8-10.6)
[2024-03-21 21:22] LABS: INR 0.9 (<1.2); Partial Thromboplastin Time 24.8 sec (22.0-30.0); Prothrombin Time 10.2 sec (10.0-12.5)
[2024-03-21] MEDS: HEPARIN SODIUM 1,000 UN/ML (10ML VL) IV ONE (21:55)
[2024-03-21] MEDS: HEPARIN SOD,PORK IN 0.45% NACL 25,000 UNIT in 0.45% NACL 1 250ML.BAG IV SCH (21:59)
--- NOTE | 2024-03-21 22:28 | PN ---
PROGRESS NOTE SUBJECTIVE: The patient is saturating in the low 90s this afternoon. He had a positive D-dimer 0.46. I ordered a CTA of the chest, which is possible for subsegmental pulmonary embolism. I started him on heparin drip with a clotting disorder workup. Ultrasound of his legs pending. He is on high-dose heparin, breathing treatments. There is also concern for possible atelectasis versus pneumonia. Started him on Azithromycin, he is already on Kefzol. He is already on breathing treatments. Continue current treatments and monitor him overnight prior to transitioning him over to Eliquis in a couple of days after being on heparin, to watch him a couple of days. OBJECTIVE: VITAL SIGNS: Pulse is 112, temp 98.5, blood pressure 105/66, O2 is low 90s to mid 90s on 2 L. CARDIOVASCULAR: S1, S2. LUNGS: Decreased breath sounds x4. ENDOCRINE: BMI is over 40. MUSCULOSKELETAL: Forced dural tear with lumbar surgery. PROGNOSIS: Guarded with positive pulmonary embolism. Possible pneumonia, treated with antibiotics, treated with high-dose heparin. Prognosis guarded. Please see further orders. MMODL / IJN: [id number] /
[2024-03-22] MEDS: AZITHROMYCIN 500 MG in SODIUM CHLORIDE 0.9% 250 ML IVPB SCH (00:08)
--- NOTE | 2024-03-22 01:09 | US ---
EXAM: US Duplex Bilateral Lower Extremities Veins CLINICAL HISTORY: ITS.REASON US Reason: dvt/positive pe TECHNIQUE: Real-time duplex ultrasound scan of the bilateral lower extremity veins integrating B-mode two-dimensional vascular structure, Doppler spectral analysis, color flow Doppler imaging and compression. COMPARISON: No relevant prior studies available. FINDINGS: Right deep veins: No DVT in the right common femoral, femoral, proximal deep femoral or popliteal veins. The veins demonstrate normal color flow, are normally compressible, with normal phasic flow and/or augmentation response. Right superficial veins: No thrombus in the visualized right great saphenous vein. Left deep veins: No DVT in the left common femoral, femoral, proximal deep femoral or popliteal veins. The veins demonstrate normal color flow, are normally compressible, with normal phasic flow and/or augmentation response. Left superficial veins: No thrombus in the visualized left great saphenous vein. Soft tissues: No popliteal cyst. IMPRESSION: No DVT.
[2024-03-22 08:30] LABS: Basophils # (A) 0.02 X 10*3/uL (0.00-0.10); Basophils % (A) 0.2 %; Eosinophils # (A) 0.06 X 10*3/uL (0.04-0.35); Eosinophils % (A) 0.5 %; HCT 33.3 % (39.6-50.0); HGB 10.6 g/dL (13.0-17.0); Lymphocytes # (A) 1.41 X 10*3/uL (0.90-5.00); Lymphocytes % (A) 11.1 %; MCH 29.9 pg (27.0-32.0); MCHC 31.8 g/dL (32.0-37.0); MCV 93.8 FL (80.0-97.0); Mean Platelet Volume 10.5 FL (9.5-12.2); Monocytes # (A) 0.92 X 10*3/uL (0.20-1.00); Monocytes % (A) 7.2 %; NRBC Per 100 WBC 0 X 10*3/uL (0.00-0.01); Neutrophils # (A) 10.27 X 10*3/uL (1.80-7.70); Neutrophils % (A) 80.7 %; Platelet Count 242 X 10*3/uL (140-440); RBC 3.55 X 10*6/uL (4.40-5.60); RDW 13.4 % (11.5-14.5); WBC 12.72 X 10*3/uL (4.50-10.00)
[2024-03-22 09:31] LABS: Procalcitonin 0.13 ng/mL (0.02-0.09)
--- NOTE | 2024-03-22 11:36 | P.PN ---
Subjective Progress Note Date: 03/22/24 Principal diagnosis: Status post L4-S1 posterior lateral decompression and fusion, dural repair Patient was evaluated today at bedside, he is resting in his hospital bed. He has multiple family members present. There was concern that the patient had developed a pulmonary embolism, he underwent multiple test yesterday, he was started on a heparin drip. They also question a atelectasis for pneumonia, they did add azithromycin for IV antibiotic coverage. Patient seems very stable at bedside today, he is resting comfortably. He has been urinating with no issues. He is passing gas he states at this time. The drain remains intact. He is having mild discomfort in his back with ambulation. He has been utilizing the LSO brace when up and ambulating. Objective - Vital Signs Vital signs: Vital Signs Temp 98.9 F 03/22/24 08:00 Pulse 90 03/22/24 08:20 Resp 16 03/22/24 08:00 BP 122/77 03/22/24 08:00 Pulse Ox 96 03/22/24 08:05 FiO2 Intake & Output 03/21/24 03/22/24 03/22/24 18:59 06:59 18:59 Intake Total 400 214.038 Output Total 700 620 Balance -300 -620 214.038 Intake: Intake, IV Titration 214.038 Amount Heparin Sod,Pork in 0.45% 214.038 NaCl 25,000 unit In 0.45 % NaCl 1 250ml.bag @ 18 UNITS/KG/HR 19.458 mls/hr IV .[id number] [facility] Rx#: [id number] Oral 400 Output: Drainage 220 Back 220 Urine 700 400 Uretheral ([place]) 300 Other: Voiding Method Indwelling Catheter Urinal # Voids 300 - Exam Gen: AOx3, NAD VSS stable at this time Integument: Postop dressing was removed today at bedside, [place] are in good position and condition. Drain was set to gravity Palpation: Mild tenderness with palpation to the lower lumbar spine ROM: Full range of motion in all major muscle groups of the bilateral upper and lower extremities, no focal deficits appreciated Sensory Exam: Senory exam to light touch is intact C5-T1 Sen[place] exam to light touch is intact L2-S1 Motor: 5/5 strength appreciated the bilateral upper extremities with shoulder elevation, shoulder abduction, elbow extension, elbow flexion, wrist extension, wrist flexion, tomb maker helper 4/5 strength appreciated the bilateral lower extremities with hip flexion, knee extension, knee flexion, plantarflexion, dorsiflexion, EHL, FHL Reflexes: 2/4 in all UE and LE Negative Annabella's, Babinski, clonus bilaterally - Labs CBC & Chem 7: 03/22/24 03:02 03/20/24 06:20 Labs: Abnormal Lab Results - Last 24 Hours (Table) 03/21/24 03/22/24 03/22/24 Range/Units 21:03 03:02 03:02 WBC 12.1 H 12.72 H (3.8-10.6) k/uL RBC 3.80 L 3.55 L (4.30-5.90) m/uL Hgb 11.4 L 10.6 L (13.0-17.5) gm/dL Hct 34.6 L 33.3 L (39.0-53.0) % MCHC 31.8 L (32.0-37.0) g/dL Neutrophils # 9.4 H 10.27 H (1.3-7.7) k/uL APTT 57.8 H (22.0-30.0) sec Procalcitonin (0.02-0.09) ng/mL 03/22/24 Range/Units 03:02 WBC (3.8-10.6) k/uL RBC (4.30-5.90) m/uL Hgb (13.0-17.5) gm/dL Hct (39.0-53.0) % MCHC (32.0-37.0) g/dL Neutrophils # (1.3-7.7) k/uL APTT (22.0-30.0) sec Procalcitonin 0.13 H (0.02-0.09) ng/mL Assessment and Plan Assessment: Postoperative day #3 status post L4-S1 posterior lateral decompression and fusion, dural repair Concern for pulmonary embolism Other medical comorbidities Plan: Pain control, continues with current medications DVT prophylaxis, medical recommendations with regards to pulmonary embolism and use of medications. On orthopedic standpoint recommend heparin 5000 units every 12 hours while in hospital Wound care, monitor surgical dressing, new dressing was applied today. Hopeful removal of drain on 03/23/2024 Activity level: On orthopedic standpoint patient has done well, he is show no headaches, blurred vision, headaches. He can weight-bear as tolerated with walker. He was instructed to utilize the LSO brace when up and ambulating. Medical recommendations appreciated with regards to pulmonary embolism and activity level Encourage incentive spirometer Continue with PT/OT Other medical specialty recommendations appreciated Discharge planning: On an orthopedic standpoint patient remained stable for discharge to home, will continue to follow during hospital stay Time with Patient: Less than 30
--- NOTE | 2024-03-22 12:49 | P.CNPUL ---
History of Present Illness Consult date: 03/22/24 Requesting physician: Luiz Pandya Reason for consult: abnormal CXR/CT Chief complaint: Back pain History of present illness: This is a pleasant 58-year-old male patient with a history of pain and is status post L4-S1 posterior lateral decompression and fusion, dural repair on March 19, 2024. He had developed increasing shortness of breath yesterday and a CT angiogram was performed that did reveal nonocclusive segmental right upper lobe pulmonary embolism. Dopplers of the lower extremities were negative. He is maintaining good O2 saturations in the 90s on 2 L/min per nasal cannula. He has been initiated on a heparin drip. Currently he is sitting up in a chair at the bedside. Awake and alert in no acute distress. He denies any worsening shortness of breath. No hemoptysis. No significant chest discomfort. White count 12.7. Hemoglobin 10.6. Platelets 242. Procalcitonin 0.13. Review of Systems REVIEW OF SYSTEMS: CONSTITUTIONAL: Denies any recent significant weight loss or weight gain. EYES: Denies change in vision. EARS, NOSE, MOUTH, THROAT: Denies headaches, denies sore throat. CARDIOVASCULAR: Denies chest pain, palpitations or syncopal episodes. RESPIRATORY: Positive for shortness of breath, no cough, congestion or hemoptysis. GASTROINTESTINAL: Denies change in appetite, denies abdominal pain GENITOURINARY: Denies hematuria, denies infections. MUSKULOSKELETAL: Positive for low back pain, denies swelling. INTEGUMENTARY: Denies rash, denies eczema. NEUROLOGICAL: Denies recent memory loss, no recent seizure activity. PSYCHIATRIC: Denies anxiety, denies depression. HEMATOLOGIC/LYMPHATIC: Denies anemia, denies enlarged lymph nodes. Past Medical History Past Medical History: No Reported History Additional Past Medical History / Comment(s): CHRONIC BACK PAIN History of Any Multi-Drug Resistant Organisms: None Reported Past Surgical History: Appendectomy Past Anesthesia/Blood Transfusion Reactions: No Reported Reaction Past Psychological History: No Psychological Hx Reported Smoking Status: Never smoker Past Alcohol Use History: Heavy Additional Past Alcohol Use History / Comment(s): HAS NOT DRANK IN TWO WEEKS IN PREPARATION FOR SURGERY Past Drug Use History: None Reported - Past Family History Mother Additional Family Medical History / Comment(s): "HEART ISSUES" Father Family Medical History: Cancer Medications and Allergies Home Medications Medication Instructions Recorded Confirmed Type No Known Home Medications 03/18/24 03/19/24 History Allergies Allergy/AdvReac Type Severity Reaction Status Date / Time No Known Allergies Allergy Verified 03/19/24 10:35 Physical Exam Vitals: Vital Signs Temp Pulse Pulse Resp BP BP Pulse Ox 03/22/24 12:00 90 03/22/24 11:49 88 03/22/24 08:20 90 03/22/24 08:05 92 96 03/22/24 08:00 98.9 F 94 16 122/77 94 L 03/22/24 05:43 99.2 F 99 16 116/75 95 03/21/24 23:55 98.2 F 100 16 111/74 95 03/21/24 20:45 98.5 F 112 H 20 105/66 03/21/24 20:40 120 H 20 87 L 03/21/24 20:31 92 03/21/24 20:20 92 03/21/24 16:20 88 03/21/24 16:05 92 03/21/24 13:51 98.4 F 92 18 119/73 93 L Intake and Output 03/21/24 03/22/24 03/22/24 22:59 06:59 14:59 Intake Total 200 214.038 Output Total 490 530 Balance -290 -530 214.038 Intake: Intake, IV Titration 214.038 Amount Heparin Sod,Pork in 0.45% 214.038 NaCl 25,000 unit In 0.45 % NaCl 1 250ml.bag @ 18 UNITS/KG/HR 19.458 mls/hr IV .[id number] [facility] Rx#: [id number] Oral 200 Output: Drainage 90 130 Back 90 130 Urine 400 400 Other: Voiding Method Urinal # Voids 300 GENERAL EXAM: Alert, pleasant 58-year-old male, up in a chair, on 2 L nasal cannula, fairly comfortable in no apparent distress. HEAD: Normocephalic. EYES: Normal reaction of pupils, equal size. NOSE: Clear with pink turbinates. THROAT: No erythema or exudates. NECK: No masses, no JVD. CHEST: No chest wall deformity. LUNGS: Equal air entry with no crackles, wheeze, rhonchi or dullness. CVS: S1 and S2 normal with no audible murmur, regular rhythm. ABDOMEN: No hepatosplenomegaly, normal bowel sounds, no guarding or rigidity. SPINE: Mild tenderness to the lumbar spine. No scoliosis or deformity SKIN: No rashes CENTRAL NERVOUS SYSTEM: No focal deficits, tone is normal in all 4 extremities. EXTREMITIES: There is no peripheral edema. No clubbing, no cyanosis. Peripheral pulses are intact. Results - Laboratory Findings CBC and BMP: 03/22/24 03:02 03/20/24 06:20 PT/INR, D-dimer PT 10.2 sec (10.0-12.5) 03/21/24 21:03 INR 0.9 (<1.2) 03/21/24 21:03 D-Dimer 0.80 mg/L FEU (<0.60) H 03/20/24 14:11 Abnormal lab findings: Abnormal Labs 03/20/24 03/20/24 03/20/24 06:20 06:20 14:11 WBC 11.33 H RBC 3.84 L Hgb 11.5 L Hct 34.9 L MCHC Immature Gran # 0.07 H Neutrophils # 8.88 H Eosinophils # 0 L APTT D-Dimer Glucose 121 H Calcium 8.0 L Procalcitonin TSH 0.178 L 03/20/24 03/21/24 03/22/24 14:11 21:03 03:02 WBC 12.1 H RBC 3.80 L Hgb 11.4 L Hct 34.6 L MCHC Immature Gran # Neutrophils # 9.4 H Eosinophils # APTT 57.8 H D-Dimer 0.80 H Glucose Calcium Procalcitonin TSH 03/22/24 03/22/24 03:02 03:02 WBC 12.72 H RBC 3.55 L Hgb 10.6 L Hct 33.3 L MCHC 31.8 L Immature Gran # Neutrophils # 10.27 H Eosinophils # APTT D-Dimer Glucose Calcium Procalcitonin 0.13 H TSH - Diagnostic Findings CT scan - chest: image reviewed Assessment and Plan Assessment: Back pain status post L4-S1 posterior lateral decompression and fusion, dural repair. Postoperative day #3 Acute hypoxic respiratory failure secondary to suspected right upper lobe nonocclusive segmental pulmonary emboli Plan: The patient was seen and evaluated CT angiogram, Dopplers, labs and medications reviewed Continue on a heparin drip for now Titrate the FiO2 as tolerated Currently on cefazolin and azithromycin We will continue to follow and make further recommendations based on his clinical status I have personally seen and examined the patient, performed the documentation and the assessment and plan as written. Number of minutes spent on the visit: 20.
--- NOTE | 2024-03-22 21:57 | PN ---
PROGRESS NOTE SUBJECTIVE: Status post lumbar surgery, hypoxemia. CT of the chest shows a subsegmental pulmonary embolus, started him on IV heparin dose. Breathing treatments and antibiotics for possible aspiration pneumonia. He has also gotten better. His oxygen level is like 2 L, he is on 95%. He is feeling a little bit better. Ultrasound of the legs is pending to rule out DVT in his lower legs, nonocclusive right upper lobe pulmonary embolism. Dopplers of the lower extremities were negative. He is doing reasonably well, 2 L of oxygen for a couple of days. We will put him on oral blood thinner on discharge. Continue current treatments. OBJECTIVE: CARDIOVASCULAR: S1, S2. LUNGS: Decreased breath sounds. HEMATOLOGY: Negative for Homans. Prognosis guarded. Continue current treatment. MMODL / IJN: [id number] /
[2024-03-23] MEDS: HEPARIN SODIUM 1,000 UN/ML (10ML VL) IV PRN (06:42)
--- NOTE | 2024-03-23 09:49 | P.PN ---
Subjective Progress Note Date: 03/23/24 Principal diagnosis: 1. L5-S1 (TRANSITIONAL SEG) GRADE II SPONDYLOLISTHESIS, SPONDYLOLYSIS 2. L5-S1 (TRANSITIONAL SEG) SEVERE STENOSIS 3. LE RADICULOPATHY 4. LE WEAKNESS 5. LOW BACK PAIN Patient was seen sitting up in chair eating breakfast this morning. Patient says he has been having a fair amount of pain this morning when he got up. Patient says he is hoping to have drain removed today. Patient says he is looking forward to working with therapy later today. Patient says most of the pain he is having is in the low back with some radiation to the bilateral hips. Patient denies any significant numbness/tingling down the legs. Patient says he has been urinating without issue since surgery. Patient denies any other orthopedic complaints at this time. Objective - Vital Signs Vital signs: Vital Signs Temp 98.4 F 03/23/24 07:33 Pulse 96 03/23/24 08:48 Resp 24 03/23/24 07:33 BP 109/64 03/23/24 07:33 Pulse Ox 97 03/23/24 08:35 FiO2 Intake & Output 03/22/24 03/23/24 03/23/24 18:59 06:59 18:59 Intake Total 414.038 394.962 Output Total 1560 0 Balance -1145.962 394.962 Intake: Intake, IV Titration 214.038 394.962 Amount Heparin Sod,Pork in 0.45% 214.038 394.962 NaCl 25,000 unit In 0.45 % NaCl 1 250ml.bag @ 18 UNITS/KG/HR 19.458 mls/hr IV .[id number] [facility] Rx#: [id number] Oral 200 Output: Drainage 0 Back 0 Urine 1560 Other: # Voids 300 - Exam Inspection: Dressing was removed from lumbar spine. Drain was removed. Minimal output from drain. New dressing was applied over incision. Incision appears to be clean, dry, intact. Negative for any active drainage. [place] are well aligned and intact. Palpation: Mild tenderness with palpation to the lower lumbar spine Range of motion: Full range of motion in all major muscle groups of the bilateral upper and lower extremities, no focal deficits appreciated Sensation: Equal, symmetric, bilateral intact throughout the upper and lower extremities. Motor: 5/5 strength appreciated the bilateral upper extremities with shoulder elevation, shoulder abduction, elbow extension, elbow flexion, wrist extension, wrist flexion, clinical care manager 4/5 strength appreciated the bilateral lower extremities with hip flexion, knee extension, knee flexion, plantarflexion, dorsiflexion, EHL, FHL Reflexes: 2/4 in all UE and LE Negative Annabella's, Babinski, clonus bilaterally - Labs CBC & Chem 7: 03/22/24 03:02 03/20/24 06:20 Labs: Abnormal Lab Results - Last 24 Hours (Table) 03/23/24 Range/Units 05:22 APTT 43.3 H (22.0-30.0) sec Assessment and Plan Assessment: 1. L5-S1 (TRANSITIONAL SEG) GRADE II SPONDYLOLISTHESIS, SPONDYLOLYSIS 2. L5-S1 (TRANSITIONAL SEG) SEVERE STENOSIS 3. LE RADICULOPATHY 4. LE WEAKNESS 5. LOW BACK PAIN -Postop day #4 status post L4-S1 decompression and fusion Plan: 1. L5-S1 (TRANSITIONAL SEG) GRADE II SPONDYLOLISTHESIS, SPONDYLOLYSIS; L5-S1 (TRANSITIONAL SEG) SEVERE STENOSIS; LE RADICULOPATHY; LE WEAKNESS; LOW BACK PAIN -surgery performed 03/19/2024L4-S1 decompression and fusion. Drain had minimal output overnight. Drain was removed at bedside this morning and dressing was changed. [place] are well aligned and intact. Assess dressings daily. Weightbearing as tolerated with walker and assistance when up with PT/OT. Pain medication as needed. We will continue to follow patient during stay in hospital. 2. Appreciate medical and pulmonology management 3. Pain management -[place]; Tylenol; Flexeril 4. DVT prophylaxis -heparin 5. GI prophylaxis -Dulcolax; milk of magnesia; senna 6. PT/OT -weightbearing as tolerated with walker and assistance as needed 7. Encourage incentive spirometer use Time with Patient: Less than 30
--- NOTE | 2024-03-23 12:34 | P.PN ---
Subjective Progress Note Date: 03/23/24 This is a pleasant 58-year-old male patient with a history of pain and is status post L4-S1 posterior lateral decompression and fusion, dural repair on March 19, 2024. He had developed increasing shortness of breath yesterday and a CT angiogram was performed that did reveal nonocclusive segmental right upper lobe pulmonary embolism. Dopplers of the lower extremities were negative. He is maintaining good O2 saturations in the 90s on 2 L/min per nasal cannula. He has been initiated on a heparin drip. Currently he is sitting up in a chair at the bedside. Awake and alert in no acute distress. He denies any worsening shortness of breath. No hemoptysis. No significant chest discomfort. White count 12.7. Hemoglobin 10.6. Platelets 242. Procalcitonin 0.13. The patient is seen today March 23, 2024 in follow-up on the regular medical floor. He is currently sitting up in a chair. Awake and alert in no acute distress. He is maintaining O2 saturations in the 90s on 2 L/min per nasal cannula. He is having some surgical site pain still. No tingling or numbness of the lower extremities. He remains on a heparin drip. He remains on cefazolin and azithromycin. Procalcitonin was 0.13. Objective - Vital Signs Vital signs: Vital Signs Temp 98.4 F 03/23/24 07:33 Pulse 100 03/23/24 12:25 Resp 24 03/23/24 07:33 BP 109/64 03/23/24 07:33 Pulse Ox 97 03/23/24 08:35 FiO2 Intake & Output 03/22/24 03/23/24 03/23/24 18:59 06:59 18:59 Intake Total 414.038 394.962 90.083 Output Total 1560 0 Balance -1145.962 394.962 90.083 Intake: Intake, IV Titration 214.038 394.962 90.083 Amount Heparin Sod,Pork in 0.45% 214.038 394.962 90.083 NaCl 25,000 unit In 0.45 % NaCl 1 250ml.bag @ 18 UNITS/KG/HR 19.458 mls/hr IV .[id number] [facility] Rx#: [id number] Oral 200 Output: Drainage 0 Back 0 Urine 1560 Other: # Voids 300 - Exam GENERAL EXAM: Alert, 58-year-old male, on 2 L nasal cannula, fairly comfortable in no apparent distress. HEAD: Normocephalic. EYES: Normal reaction of pupils, equal size. NOSE: Clear with pink turbinates. THROAT: No erythema or exudates. NECK: No masses, no JVD. CHEST: No chest wall deformity. LUNGS: Equal air entry with no crackles, wheeze, rhonchi or dullness. CVS: S1 and S2 normal with no audible murmur, regular rhythm. ABDOMEN: No hepatosplenomegaly, normal bowel sounds, no guarding or rigidity. SPINE: Mild tenderness to the lumbar spine. No scoliosis or deformity SKIN: No rashes CENTRAL NERVOUS SYSTEM: No focal deficits, tone is normal in all 4 extremities. EXTREMITIES: There is no peripheral edema. No clubbing, no cyanosis. Peripheral pulses are intact. - Labs CBC & Chem 7: 03/22/24 03:02 03/20/24 06:20 Labs: Abnormal Lab Results - Last 24 Hours (Table) 03/23/24 Range/Units 05:22 APTT 43.3 H (22.0-30.0) sec Assessment and Plan Assessment: Back pain status post L4-S1 posterior lateral decompression and fusion, dural repair. Postoperative day #4 Acute hypoxic respiratory failure secondary to suspected right upper lobe nonocclusive segmental pulmonary emboli Plan: The patient was seen and evaluated Medications reviewed Could be transitioned to a factor Xa inhibitor Titrate down the FiO2 as tolerated Procalcitonin 0.13 On cefazolin and azithromycin Increase his activity as tolerated We will continue to follow I have personally seen and examined the patient, performed the documentation and the assessment and plan as written. Number of minutes spent on the visit: 10.
[2024-03-23] MEDS: LACTULOSE 20 GM/30 ML CUP PO SCH (15:11)
--- NOTE | 2024-03-23 16:12 | PN ---
PROGRESS NOTE SUBJECTIVE: This is a 58-year-old white male. He is on postop his lumbar surgery to have pulmonary subsegmental PE. Oxygen level yesterday on 2 L was 95. Procalcitonin 0.13. He is on azithromycin and Ancef. CAT scan is read as subsegmental PE, possible aspiration pneumonia. We are going to transition him over to Eliquis and discharge home. Plan to do CTA in 8 to 10 weeks. OBJECTIVE: CARDIOVASCULAR: S1 and S2. LUNGS: Transmitted upper sounds. GI: Soft. HEMATOLOGY: Negative Homans. PSYCH: Alert and oriented x3. LABORATORY DATA: White count is 12.72 and hemoglobin is 10.6. We will be transferred him Eliquis. Titrate the oxygen down. Activity as tolerated. Possible discharge home in the next 24 to 48 hours. MMODL / IJN: [id number] /
[2024-03-23] MEDS: Apixaban Initiation Dose--VTE 5 MG TAB PO SCH (20:18)
--- NOTE | 2024-03-24 07:28 | P.PN ---
Subjective Progress Note Date: 03/24/24 Principal diagnosis: Pulmonary embolism This is a pleasant 58-year-old male patient with a history of pain and is status post L4-S1 posterior lateral decompression and fusion, dural repair on March 19, 2024. He had developed increasing shortness of breath yesterday and a CT angio gram was performed that did reveal nonocclusive segmental right upper lobe pulmonary embolism. Dopplers of the lower extremities were negative. He is maintaining good O2 saturations in the 90s on 2 L/min per nasal cannula. He has been initiated on a heparin drip. Currently he is sitting up in a chair at the bedside. Awake and alert in no acute distress. He denies any worsening shortness of breath. No hemoptysis. No significant chest discomfort. White count 12.7. Hemoglobin 10.6. Platelets 242. Procalcitonin 0.13. The patient is seen today March 23, 2024 in follow-up on the regular medical floor. He is currently sitting up in a chair. Awake and alert in no acute distress. He is maintaining O2 saturations in the 90s on 2 L/min per nasal cannula. He is having some surgical site pain still. No tingling or numbness of the lower extremities. He remains on a heparin drip. He remains on cefazolin and azithromycin. Procalcitonin was 0.13. Progress note dated March 24, 2024. The patient is seen today in room 451. He is currently on 2 L of oxygen. He was transition from IV heparin to Eliquis. He is feeling much better. His breathing is much improved. He denies any chest pain or chest discomfort. He states he had a pretty uneventful night. Labs today include a PTT of 27.5. No additional labs today. Objective - Vital Signs Vital signs: Vital Signs Temp 98 F 03/24/24 00:39 Pulse 81 03/24/24 00:39 Resp 20 03/24/24 00:39 BP 126/79 03/24/24 00:39 Pulse Ox 96 03/24/24 00:39 FiO2 Intake & Output 03/23/24 03/24/24 03/24/24 18:59 06:59 18:59 Intake Total 138.368 Output Total 500 Balance -361.632 Intake: Intake, IV Titration 138.368 Amount Heparin Sod,Pork in 0.45% 138.368 NaCl 25,000 unit In 0.45 % NaCl 1 250ml.bag @ 18 UNITS/KG/HR 19.458 mls/hr IV .[id number] [facility] Rx#: [id number] Output: Urine 500 Other: # Voids 3 - Exam No acute distress, oriented 3. Currently on 2 L of oxygen. No respiratory distress. HEENT examination is grossly unremarkable. Mucous membranes are moist. No oral lesions. Neck supple. Full range of motion. No adenopathy thyromegaly or neck vein distention. Cardiovascular examination reveals regular rhythm rate. S1-S2 normal. No S3 or S4. No discernible murmur noted. Heart rate 81 bpm. Lungs reveal clear breath sounds. Breath sounds are equal bilaterally. No adventitious lung sounds including wheezes rhonchi or crackles. Abdomen soft bowel sounds are heard. No masses or tenderness. Extremities are intact. No cyanosis clubbing or edema. Skin is without rash or lesion. Neurologic examination is brief but nonfocal. - Labs CBC & Chem 7: 03/22/24 03:02 03/20/24 06:20 Labs: Abnormal Lab Results - Last 24 Hours (Table) 03/23/24 Range/Units 12:17 APTT 53.5 H (22.0-30.0) sec Assessment and Plan Assessment: Back pain status post L4-S1 posterior lateral decompression and fusion, dural repair. Postoperative day #5. Acute hypoxic respiratory failure secondary to right upper lobe nonocclusive segmental pulmonary emboli. Plan: Plan dated March 24, 2024. The patient is seen today room 451. Labs, x-rays, medications are reviewed. The patient is currently on 2 L of oxygen. He was transition from IV heparin to Eliquis. His respiratory status is stable. He denies any shortness of breath, cough, wheezing, chest tightness, or phlegm production. He also denies any chest pain or pressure. He continues on Ancef. The patient's procalcitonin level was 0.13. Culture data is thus far negative. We will continue to follow the patient, and make recommendations. He will follow-up with us in the office. He will need a follow-up CT angiogram, in 8 to 10 weeks. He should be treated for at least 3 months. Time with Patient: Less than 30
--- NOTE | 2024-03-24 09:25 | P.PN ---
Subjective Progress Note Date: 03/24/24 Principal diagnosis: 1. L5-S1 (TRANSITIONAL SEG) GRADE II SPONDYLOLISTHESIS, SPONDYLOLYSIS 2. L5-S1 (TRANSITIONAL SEG) SEVERE STENOSIS 3. LE RADICULOPATHY 4. LE WEAKNESS 5. LOW BACK PAIN Patient was seen sitting up in chair eating breakfast this morning. Patient says he has been having a fair amount of pain this morning when he got up. Patient says he is looking forward to working with therapy later today. Patient says most of the pain he is having is in the low back with some radiation to the bilateral hips. Patient says Dr. Castro mentioned possible discharge home tomorrow. Patient denies any significant numbness/tingling down the legs. Patient says he has been urinating without issue since surgery. Patient denies any other orthopedic complaints at this time. Objective - Vital Signs Vital signs: Vital Signs Temp 97.5 F L 03/24/24 06:47 Pulse 84 03/24/24 08:05 Resp 16 03/24/24 06:47 BP 111/75 03/24/24 06:47 Pulse Ox 94 L 03/24/24 06:47 FiO2 Intake & Output 03/23/24 03/24/24 03/24/24 18:59 06:59 18:59 Intake Total 138.368 Output Total 500 Balance -361.632 Intake: Intake, IV Titration 138.368 Amount Heparin Sod,Pork in 0.45% 138.368 NaCl 25,000 unit In 0.45 % NaCl 1 250ml.bag @ 18 UNITS/KG/HR 19.458 mls/hr IV .[id number] [facility] Rx#: [id number] Output: Urine 500 Other: # Voids 3 1 - Exam Inspection: Dressing appears to be clean, dry, intact. Dressing left in place.. Incision appears to be clean, dry, intact. Negative for any active drainage. [place] are well aligned and intact. Palpation: Mild tenderness with palpation to the lower lumbar spine Range of motion: Full range of motion in all major muscle groups of the bilateral upper and lower extremities, no focal deficits appreciated Sensation: Equal, symmetric, bilateral intact throughout the upper and lower extremities. 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 L5-S1 (TRANSITIONAL SEG) GRADE II SPONDYLOLISTHESIS, SPONDYLOLYSIS 2. L5-S1 (TRANSITIONAL SEG) SEVERE STENOSIS 3. LE RADICULOPATHY 4. LE WEAKNESS 5. LOW BACK PAIN -Postop day #5 status post L4-S1 decompression and fusion Plan: 1. L5-S1 (TRANSITIONAL SEG) GRADE II SPONDYLOLISTHESIS, SPONDYLOLYSIS; L5-S1 (TRANSITIONAL SEG) SEVERE STENOSIS; LE RADICULOPATHY; LE WEAKNESS; LOW BACK PAIN -surgery performed 03/19/2024L4-S1 decompression and fusion. Dressing clean, dry, intact. [place] are well aligned and intact. Assess dressings daily. Weightbearing as tolerated with walker and assistance when up with PT/OT. Pain medication as needed. Okay to shower today. We will continue to follow patient during stay in hospital. 2. Appreciate medical and pulmonology management 3. Pain management -[place]; Tylenol; Flexeril 4. DVT prophylaxis -heparin 5. GI prophylaxis -Dulcolax; milk of magnesia; senna 6. PT/OT -weightbearing as tolerated with walker and assistance as needed 7. Encourage incentive spirometer use Time with Patient: Less than 30
[2024-03-24] MEDS: MAGNESIUM HYDROXIDE 2,400 MG/30 ML CUP PO PRN (23:50)
--- NOTE | 2024-03-25 08:12 | P.PN ---
Subjective Progress Note Date: 03/25/24 Principal diagnosis: 1. Grade II spondylolisthesis of L5 on S1 2. Bilateral lower extremity radiculopathy 3. Low back pain Patient seen and examined this morning. Patient is resting comfortably in bed. Surgical incision to the lumbar spine is well-approximated with [place] intact. No active drainage at this time. New surgical dressing has been applied. Overall patient states that his pain is managed on current regimen. He does hav e complaint of a sharp shooting pain of the left hip which is chronic in nature and he states has occasional flareups. Medications have been adjusted. Encourage patient to be up in chair for all meals. Educated patient on the importance of keeping pressure off the surgical incision. Patient verbalizes understanding. Continue to encourage patient to work with physical therapy and use of incentive spirometer while awake. Patient is cleared from orthopedic standpoint for discharge when medically stable. Discharge instructions have been reviewed and discussed. Objective - Vital Signs Vital signs: Vital Signs Temp 98.5 F 03/25/24 07:52 Pulse 84 03/25/24 07:52 Resp 16 03/25/24 07:52 BP 117/73 03/25/24 07:52 Pulse Ox 92 L 03/25/24 07:52 FiO2 Intake & Output 03/24/24 03/25/24 03/25/24 18:59 06:59 18:59 Output Total 500 450 Balance -500 -450 Output: Urine 500 450 Other: # Voids 2 # Bowel Movements 1 - Exam Physical Examination General: The patient is awake and alert, in no acute distress Skin: Skin is warm and dry with no obvious rashes or lesions. Surgical incision to the lumbar spine, edges are well-approximated with [place] intact. New surgical dressing has been applied. Eye: Pupils are equal, round and reactive to light, extra-ocular movements are intact; there is normal conjunctiva bilaterally. Neck: The neck is supple, there is no tenderness and ROM intact. Cardiovascular: There is a regular rate and rhythm. No murmur, rub or gallop is appreciated. Respiratory: Respirations are non-labored, breath sounds are equal. Gastrointestinal: Soft, non-distended, non-tender abdomen. Back: There is no tenderness to palpation in the midline, paralumbar, paratho racic or buttocks region. There is no obvious deformity . Musculoskeletal: ROM limited secondary to pain and stiffness from surgical procedure. Muscle strength in all major muscle groups of bilateral upper extremities 5/5, bilateral lower extremities 4+/5. Neurological: CN 2-12 intact. There are no obvious motor or sensory deficits. Movement and coordination equal and intact. Sensory exam to light touch intact C5-T1 and intact from L2-S1. Reflexes 2/4 in bilateral upper and lower extremities. Negative Hoffmans, babinski, and clonus signs. Psychiatric: Cooperative, appropriate mood & affect, normal judgment. - Labs CBC & Chem 7: 03/22/24 03:02 03/20/24 06:20 Assessment and Plan Assessment: Postop day 6: L4-S1 decompression fusion 1. Grade II spondylolisthesis of L5 on S1 2. Bilateral lower extremity radiculopathy 3. Low back pain Plan: -Appreciate financial services consultant and team management. -Activity: Ambulate QID, OOB all meals, up and about, limit lifting bending twisting to less than 5 lbs. Use walker or cane if needed for stability. -Daily PT/OT, increase ambulation strength and balance. -Brace when up and about, not needed in bed or chair; LSO brace is at bedside. -Pain control: Adequate at this time -Meds: reviewed -GI ppx: senna, Miralax -DC wong this morning -DVT PPX: Eliquis -Hygiene:Maintain dressing clean and dry. Meticulous cleaning after BMs away from the incision site -Encourage IS 10x/hr -Dispo: Anticipate discharge home with home care, patient is cleared from orthopedic standpoint for discharge when medically stable. *I reviewed and discussed this case with my attending Dr. Pandya, whom has reviewed this chart and films and is in agreement with assessment and plan of care as outlined above. I have personally seen and examined the patient, performed the documentation and the assessment and plan as written. Number of minutes spent on the visit: 20m.
[2024-03-25] MEDS: GABAPENTIN 300 MG CAP PO SCH (08:19)
[2024-03-25 15:20] VITALS: BP 119/77; PULSE 94; RESP 18; TEMP 98.1
--- NOTE | 2024-03-25 16:00 | P.PN ---
Subjective Progress Note Date: 03/25/24 This is a pleasant 58-year-old male patient with a history of pain and is status post L4-S1 posterior lateral decompression and fusion, dural repair on March 19, 2024. He had developed increasing shortness of breath yesterday and a CT angiogram was performed that did reveal nonocclusive segmental right upper lobe pulmonary embolism. Dopplers of the lower extremities were negative. He is maintaining good O2 saturations in the 90s on 2 L/min per nasal cannula. He has been initiated on a heparin drip. Currently he is sitting up in a chair at the bedside. Awake and alert in no acute distress. He denies any worsening shortness of breath. No hemoptysis. No significant chest discomfort. White co unt 12.7. Hemoglobin 10.6. Platelets 242. Procalcitonin 0.13. The patient is seen today March 23, 2024 in follow-up on the regular medical floor. He is currently sitting up in a chair. Awake and alert in no acute distress. He is maintaining O2 saturations in the 90s on 2 L/min per nasal cannula. He is having some surgical site pain still. No tingling or numbness of the lower extremities. He remains on a heparin drip. He remains on cefazolin and azithromycin. Procalcitonin was 0.13. Progress note dated March 24, 2024. The patient is seen today in room 451. He is currently on 2 L of oxygen. He was transition from IV heparin to Eliquis. He is feeling much better. His breathing is much improved. He denies any chest pain or chest discomfort. He states he had a pretty uneventful night. Labs today include a PTT of 27.5. No additional labs today. On today's evaluation of 03/25/2024, the patient is doing well. Complaining of some pain in his back. The surgical wound site is dry clean and intact. The patient denies having any specific complaints in terms of these respiratory apparatus. No chest pain. No shortness of breath. No hemoptysis. No pleurisy. No cough or sputum production. The patient is status post L4-S1 decompression and fusion. Using incentive spirometer. Remains on anticoagulation with Eliquis 10 mg p.o. twice a day. He is also on DuoNeb nebu lized treatments and Symbicort as maintenance. No issues with constipation. No recent blood work from today. His procalcitonin level was at 0.13. CTA of the chest was done on 03/21/2024 showed findings suspicious for nonocclusive right upper lobe segmental pulmonary emboli. No clear evidence of any RV strain pattern. Doppler of the lower extremity that was done on 03/22/2024 showed no evidence of DVT in lower extremities bilaterally. The patient has no other complaints otherwise for now. Objective - Vital Signs Vital signs: Vital Signs Temp 98.5 F 03/25/24 07:52 Pulse 88 03/25/24 09:27 Resp 16 03/25/24 08:30 BP 117/73 03/25/24 07:52 Pulse Ox 92 L 03/25/24 09:14 FiO2 Intake & Output 03/24/24 03/25/24 03/25/24 18:59 06:59 18:59 Output Total 500 450 Balance -500 -450 Output: Urine 500 450 Other: Voiding Method Urinal # Voids 2 # Bowel Movements 1 - Exam GENERAL EXAM: Alert, 58-year-old male, on room air oxygen, fairly comfortable in no apparent distress. HEAD: Normocephalic. EYES: Normal reaction of pupils, equal size. NOSE: Clear with pink turbinates. THROAT: No erythema or exudates. NECK: No masses, no JVD. CHEST: No chest wall deformity. LUNGS: Equal air entry with no crackles, wheeze, rhonchi or dullness. CVS: S1 and S2 normal with no audible murmur, regular rhythm. ABDOMEN: No hepatosplenomegaly, normal bowel sounds, no guarding or rigidity. SPINE: Mild tenderness to the lumbar spine. No scoliosis or deformity SKIN: No rashes CENTRAL NERVOUS SYSTEM: No focal deficits, tone is normal in all 4 extremities. EXTREMITIES: There is no peripheral edema. No clubbing, no cyanosis. Peripheral pulses are intact. - Labs CBC & Chem 7: 03/22/24 03:02 03/20/24 06:20 Assessment and Plan Plan: Back pain status post L4-S1 posterior lateral decompression and fusion, dural repair. Postoperative day # 6 Acute hypoxic respiratory failure secondary to suspected right upper lobe nonocclusive segmental pulmonary emboli, the patient has no evidence of any DVT. No evidence of any hemodynamic instability and the patient is currently on anticoagulation with Eliquis. Back pain secondary to surgical manipulation the surgical wound site is dry clean and intact Plan Continue anticoagulation with Eliquis Recommend 3 to 6 months of therapy This is a questionable subsegmental nonocclusive pulmonary embolism without evidence of any DVT, likely provoked, the patient has been committed to anticoagulation. Increase mobility Discharge planning is in progress. Will continue to follow
[2024-03-25] MEDS ORDERED: SYMBICORT 160-4.5 MCG INHALER INHALATION SCH (20:00)
--- NOTE | 2024-03-25 23:37 | PN ---
PROGRESS NOTE SUBJECTIVE: The patient remains on 2 L oxygen, is on Eliquis. Breathing is improved. He remains on anticoagulation with Eliquis 10 b.i.d. OBJECTIVE: LUNGS: Clear. CARDIOVASCULAR: S1, S2. ABDOMEN: Soft. EXTREMITIES: No edema. Status post L4-S1 lateral decompression and fusion to repair hypoxia respiratory failure secondary to suspected right upper lobe nonocclusive subsegmental pulmonary embolus with possible aspiration pneumonitis. Only treatment for 3-6 months. He has had increased mobility, discharge planning. PLAN: Prognosis guarded. MMODL / IJN: [id number] /
[2024-03-26 10:20] LABS: Protein C (Activity) 138.9 % (71.0-138.0)
--- NOTE | 2024-03-26 21:16 | CDI ---
Documentation Clarification Form Date: 03/26/2024 08:44:36 PM From: Alycia Ward Phone: Admit Date: 03/22/2024 12:05:00 PM Patient Name: David Causey Visit Number: [id number] Discharge Date: 03/25/2024 06:15:00 PM ATTENTION: The Clinical Documentation Specialists (CDI) and [facility] Coding Staff appreciate your assistance in clarifying documentation. Please respond to the clarification below the line at the bottom and electronically sign. The CDI & [facility] Coding staff will review the response and follow-up if needed. Please note: Queries are made part of the Legal Health Record. If you have any questions, please contact the author of this message via ITS. Dr. David Castro Subsegmental PE is documented per Progress Note 03/22 and 03/23. Additional clarification regarding the Subsegmental PE is requested. Patients Admitting Diagnosis: Grade IIspondylolisthesisof L5 on S1 Post-Operative Diagnosis: Grade IIspondylolisthesisof L5 on S1 Procedure performed: L4-S1 posterior lateraldecompressionandfusion,dural repair History/Risk Factors: 58yo M, [id number] IIspondylolisthesis, severesleep disturbances, CBP, unstable with severe central and B/L foraminal stenosis,facethypertrophy, ligamentalhypertrophy, discosteophyte, severesleep disturbances, CBP Clinical Indicators: He had developed increasingshortness of breath in postop period Radiology results: Low lung volumes & crowded vascular markings. Large patient body habitus resulting in hazy lungdensities. Heart borderlineenlarged. Nofrank consolidation orpleural effusion. CT: LimitedCTexamination; consider short intervalfollow-up. Findingssuspicious fornonocclusive RUL segmentalPE. Right heartstrain cannot be excluded. Treatment: started him on IV heparin dose. Breathing treatments and antibiotics for possibleaspiration pneumonia Please clarify if subsegmental pulmonary embolus is a complication of the surgical procedure? [ ] Yes [ ] No [ ] Other, please specify [ ] Unable to determine (Template Last Revised: January 2021) MTDD
--- NOTE | 2024-03-27 12:48 | CDI ---
Documentation Clarification Form Date: 03/27/2024 12:43:23 PM From: Alycia Ward Phone: Admit Date: 03/22/2024 12:05:00 PM Patient Name: David Causey Visit Number: [id number] Discharge Date: 03/25/2024 06:15:00 PM ATTENTION: The Clinical Documentation Specialists (CDI) and [facility] Coding Staff appreciate your assistance in clarifying documentation. Please respond to the clarification below the line at the bottom and electronically sign. The CDI & [facility] Coding staff will review the response and follow-up if needed. Please note: Queries are made part of the Legal Health Record. If you have any questions, please contact the author of this message via ITS. Dr. David Castro Thank you for acknowledging the previous query; however, it lacked a response. Please review and advise Subsegmental PE is documented per Progress Note 03/22 and 03/23. Additional clarification regarding the Subsegmental PE is requested. Patients Admitting Diagnosis: Grade IIspondylolisthesisof L5 on S1 Post-OperativeDiagnosis: Grade IIspondylolisthesisof L5 on S1 Procedure performed: L4-S1 posterior lateraldecompressionandfusion,dural repair History/Risk Factors: 58yo M, L5-S4[place] IIspondylolisthesis, severesleep disturbances, CBP, unstable with severe central and B/Lforaminal stenosis,facethypertrophy, ligamentalhypertrophy, discosteophyte, severesleep disturbances, CBP Clinical Indicators: He had developed increasingshortness of breathinpostopperiod Radiology results: Low lung volumes crowded vascular markings. Large patient body habitus resulting in hazy lungdensities. Heart borderlineenlarged. Nofrank consolidation orpleural effusion. CT: LimitedCTexamination; consider short intervalfollow-up. Findingssuspicious fornonocclusive RUL segmentalPE. Right heartstraincannot be excluded. Treatment: started him on IV heparin dose. Breathing treatments and antibiotics forpossibleaspiration pneumonia. Please clarify if subsegmentalpulmonary embolusis acomplication ofthe surgical procedure? [ ] Yes [ ] No [ ] Other, please specify [ ] Unable to determine (Template LastRevised: January 2021) MTDD
--- NOTE | 2024-03-27 23:16 | PN ---
PROGRESS NOTE Pulmonary embolus most likely complication of surgical procedures. MMODL / IJN: [id number] /
== END 2024-03-25 18:15 | disposition home or self-care (01) | DRG 453 ==
LOC: OR 10:03 → 4SSUR 17:12 → OR 17:32 → 4SSUR 17:32 → OBSVTOIN 03-22 12:05
PROVIDERS: ADMIT Family Medicine; ATTEND Family Medicine
PROC: 0SG0071 Fusion of Lumbar Vertebral Joint with Autologous Tissue Substitute, Posterior Approach, Posterior Column, Open Approach (ICD-10-PCS; 2024-03-19)
PROC: 0SG30AJ Fusion of Lumbosacral Joint with Interbody Fusion Device, Posterior Approach, Anterior Column, Open Approach (ICD-10-PCS; 2024-03-19)
PROC: 0SG3071 Fusion of Lumbosacral Joint with Autologous Tissue Substitute, Posterior Approach, Posterior Column, Open Approach (ICD-10-PCS; 2024-03-19)
PROC: 01NB0ZZ Release Lumbar Nerve, Open Approach (ICD-10-PCS; 2024-03-19)
PROC: 01NR0ZZ Release Sacral Nerve, Open Approach (ICD-10-PCS; 2024-03-19)
PROC: 0ST20ZZ Resection of Lumbar Vertebral Disc, Open Approach (ICD-10-PCS; 2024-03-19)
PROC: 0ST40ZZ Resection of Lumbosacral Disc, Open Approach (ICD-10-PCS; 2024-03-19)
PROC: 00QT0ZZ Repair Spinal Meninges, Open Approach (ICD-10-PCS; 2024-03-19)
PROC: 8E0WXBZ Computer Assisted Procedure of Trunk Region (ICD-10-PCS; 2024-03-19)
PROC: 0SG00AJ Fusion of Lumbar Vertebral Joint with Interbody Fusion Device, Posterior Approach, Anterior Column, Open Approach (ICD-10-PCS; principal; 2024-03-19 12:00)
DX: M43.17 Spondylolisthesis, lumbosacral region (principal); I26.93 Single subsegmental thrombotic pulmonary embolism without acute cor pulmonale; J69.0 Pneumonitis due to inhalation of food and vomit; J96.01 Acute respiratory failure with hypoxia; G97.41 Accidental puncture or laceration of dura during a procedure; J95.89 Other postprocedural complications and disorders of respiratory system, not elsewhere classified; M48.07 Spinal stenosis, lumbosacral region; M54.17 Radiculopathy, lumbosacral region; M43.16 Spondylolisthesis, lumbar region; M47.816 Spondylosis without myelopathy or radiculopathy, lumbar region; M25.78 Osteophyte, vertebrae; M40.209 Unspecified kyphosis, site unspecified; G47.8 Other sleep disorders; G89.29 Other chronic pain
CPT/HCPCS: 71045; 71275; 72100; 72131; 80048; 83036; 84145; 84439; 84443; 85025; 85300; 85303; 85306; 85379; 85610; 85730; 86038; 93970; 94640; 94760

== ENCOUNTER → 2024-05-08 | Outpatient (CLI) | payer BC ==
--- NOTE | 2024-05-08 12:34 | CT ---
EXAMINATION TYPE: CT angio chest CT DLP: 677 mGycm, Automated exposure control for dose reduction was used. DATE OF EXAM: 05/08/2024 11:47 AM COMPARISON: CTA chest 03/21/2024 CLINICAL INDICATION:Male, 58 years old with history of I26.99 OTHER PULMONARY EMBOLISM WITHOUT ACUTE COR; f/u PE. hx of PE x2 months ago after back sx TECHNIQUE/CONTRAST: CTA scan of the thorax is performed with IV Contrast, patient injected with 100ml mL of Isovue 370, p ulmonary embolism protocol. MIP images are created and reviewed. FINDINGS: Pulmonary Artery: The enhancement of the pulmonary arteries is not optimal. There is no evidence for a filling defect within the pulmonary vasculature to suggest acute pulmonary embolism. The pulmonary artery is of normal size. Lungs/Pleura: No evidence of focal consolidation, pleural effusion or pneumothorax. Minimal dependent bibasilar subsegmental atelectasis. Airway: Large airways are patent. Heart: Heart is within normal limits for size.. No pericardial effusion. Vasculature: No evidence of aortic aneurysm. Mediastinum: No gross evidence of adenopathy. Musculoskeletal: No acute osseous abnormalities. No aggressive osseous lesion. Soft Tissues: Unremarkable. Lower neck: No significant findings. Upper Abdomen: Diffuse low-attenuation to the liver parenchyma.. IMPRESSION: 1. No evidence of pulmonary embolism or acute thoracic process. 2. Hepatic steatosis.
== END | disposition home or self-care (01) ==
LOC: RADCTMAIN 10:53
PROVIDERS: ATTEND Internal Medicine Critical Care Medicine
DX: I26.99 Other pulmonary embolism without acute cor pulmonale (principal); K76.0 Fatty (change of) liver, not elsewhere classified
CPT/HCPCS: 71275; Q9967